=== PATIENT | female | born 1955 | race Caucasian/White ===

== ENCOUNTER 2020-07-25 08:41 | Outpatient (CLI) | payer BC, SELFPAY ==
--- NOTE | ~2020-07-25 | MM_ITS ---
EXAMINATION: MM screening silvia BI w kenneth HISTORY: Screening TECHNIQUE: Craniocaudal and mediolateral oblique 3-D tomosynthesis images were obtained and synthetic 2-D images were generated. CAD analysis was submitted and interpreted. COMPARISON: Comparison to multiple prior studies sequentially, with oldest reviewed study dated 06/11. BREAST PARENCHYMAL COMPOSITION: There are scattered areas of fibroglandular density. FINDINGS: There is no evidence of suspicious mass, calcification, or architectural distortion to sugg est malignancy in either breast. There has been no suspicious interval change. IMPRESSION: 1. No mammographic evidence of malignancy. 2. Recommend routine screening mammography in one year. BI-RADS Category 1: Negative Reviewed, dictated and finalized at location A.
== END 2020-07-25 08:42 | disposition home or self-care (01) ==
LOC: ANHIMG 08:47
PROVIDERS: PCP Internal Medicine; Visit Provider Obstetrics & Gynecology
DX: Z12.31 Encounter for screening mammogram for malignant neoplasm of breast (principal)
CPT/HCPCS: 77063; 77067

== ENCOUNTER 2020-08-21 02:01 | Day surgery (SDC) | payer BC, SELFPAY ==
[2020-08-07 10:37] VITALS: BMI 29.9
[2020-08-21 11:21] VITALS: BP 123/87; PULSE 81; RESP 17; TEMP 36.5; O2SAT 99; BMI 29.0
[2020-08-21] MEDS: LACTATED RINGERS 1,000 ML 150 ML IV CONT (11:25)
--- NOTE | 2020-08-21 12:19 | WPDANESEPPF ---
Anes - Initial Pre Proc Eval Procedure: Operation Date: 08/21/20 12:30 Proposed Procedures p Colonoscopy - Rodri Jimenez DO Date/Time: 08/21/20 12:19 Surgeon: Rodri Jimenez DO Pre Op Diagnosis: constipation Patient Data Age: 64 Gender: F Height: 1.68 m Weight: 81.8 kg Last Vital Signs Temp 97.7 F 08/21/20 11:21 Pulse 81 08/21/20 11:21 Resp 17 08/21/20 11:21 BP 123/87 08/21/20 11:21 Pulse Ox 99 08/21/20 11:21 Allergies Allergy/AdvReac Type Severity Reaction Status Date / Time morphine Allergy Severe Vomiting Verified 08/21/20 11:20 Penicillins Allergy Mild Hives Verified 08/21/20 11:20 Home Medications Medication Instructions Recorded Confirmed Type omeprazole 20 mg capsule,delayed 20 mg PO BID #180 cap 02/16/19 08/21/20 Rx release ascorbate calcium (vitamin C) 500 500 mg PO DAILY 03/28/19 08/21/20 History mg tablet aspirin 81 mg tablet,delayed 81 mg PO DAILY 03/28/19 08/21/20 History release atorvastatin 80 mg tablet 80 mg PO DAILY 03/28/19 08/21/20 History cyclobenzaprine 10 mg tablet 10 mg PO TID PRN 03/28/19 08/21/20 History lisinopril 20 mg tablet 20 mg PO DAILY 03/28/19 08/21/20 History metoprolol succinate 25 mg capsule 25 mg PO DAILY 03/28/19 08/21/20 History sprinkle, ext. release 24 hr ioxvfygbnfer-Kl-zgpr-minerals 1 tablet PO DAILY 03/28/19 08/21/20 History cholecalciferol (vitamin D3) 25 25 mcg PO DAILY 09/26/19 08/21/20 History mcg (1,000 unit) capsule mupirocin 2 % topical ointment 1 applic TOPICAL BID #15 gm 09/26/19 08/21/20 Rx omega-3 fatty acids 1,000 mg 1,000 mg PO DAILY 09/26/19 08/21/20 History capsule tramadol 50 mg tablet 50 mg PO BID PRN #60 tablet 07/09/20 08/21/20 Rx levothyroxine 112 mcg tablet 112 mcg PO DAILY #90 tablet 08/02/20 08/21/20 Rx gabapentin 300 mg PO PRN PRN 08/07/20 08/21/20 History trazodone 100 mg PO DAILY 08/07/20 08/21/20 History Patient hx anesthesia problems: none Family hx anesthesia problems: none PMFSH Past Medical History Medical History (Updated 08/21/20 @ 12:19 by James Rios MD) CAD (coronary artery disease) stents in place Gastroesophageal reflux disease Hyperlipidemia Hypertension Hypothyroidism Family History Family History Father Family history of cardiovascular disease Mother Family history of cardiovascular disease Sibling Family history of cardiovascular disease Family history of malignant neoplasm Other Cerebrovascular accident Diabetes mellitus Family history of alcoholism Family history of arthritis Family history of gout Hypertension Social History Social History Smoking status: Former smoker Tobacco type: cigarettes Second hand tobacco smoke exposure: No Smoking end date: 02/22/06 Alcohol intake: current Drinks per week: 5 Alcohol use details: socially Substance use: current Substance use type: marijuana Other substance usage details: CBD oil Living arrangements: alone Spiritual care concerns: No Anes - Eval Final PreProcedure Day of Procedure 08/21/20 12:19 Patient weight: obese Heart: regular rate and rhythm Lungs: clear to auscultation Airway: Mallampati scale class II Neurological: alert and oriented Last oral intake: >/= 8 hours ASA classification: III Emergent: no Anesthetic plan: proceed Anesthesia type and monitoring: general GIVS and standard monitoring Informed Consent: The patient's anesthetic plan and its attendant risks and benefits were discussed with the patient/family/POA. Questions were solicited and answers provided to the satisfaction of the patient/family/POA.
--- NOTE | 2020-08-21 13:23 | WPDGICN ---
GI Consult Note Consult date/time: 08/21/20 13:23 HPI: Reason for visit colonoscopy. This very pleasant lady seen in consultation request the primary physician. Impression: Screening colonoscopy. GERD with dysphagia. Evaluate for underlying ring or stricture. HTN. HLD. Hypothyroidism. CAD. Status post stent placement. Recommendation: Colonoscopy. EGD will be scheduled. History: This very pleasant lady's here for colonoscopy. She has been having trouble with constipation. She takes stool softeners and laxatives to have a bowel movement. She has remote history of diverticulosis coli and a hyperplastic polyp. Hematochezia, melena acholic stools tonight. She has a history reflux disease and is now having dysphagia to solid foods. Physical examination: General: very pleasant patient in no acute distress. HEENT: Head was normocephalic sclerae is clear mouth without masses neck was supple. Heart: Rate rhythm regular without S3 or S4. Lungs: Decreased breath sounds bilaterally. Abdomen: Soft with no guarding or rigidity. Bowel sounds were active. Neurologic: Cranial nerves 2 through 12 intact. No focal defects. No clonus. Musculoskeletal system: Revealed no joint tenderness or swelling no muscle atrophy. Extremities: Reveal no significant edema. Skin: Warm and dry with normal turgor. Mental status: intact. Patient is alert and oriented. Review of Systems Review of Systems: All systems reviewed & are unremarkable except as noted in HPI and below PMFSH Past Medical History Medical History (Updated 08/21/20 @ 12:19 by James Rios MD) CAD (coronary artery disease) stents in place Gastroesophageal reflux disease Hyperlipidemia Hypertension Hypothyroidism Family History Family History Father Family history of cardiovascular disease Mother Family history of cardiovascular disease Sibling Family history of cardiovascular disease Family history of malignant neoplasm Other Cerebrovascular accident Diabetes mellitus Family history of alcoholism Family history of arthritis Family history of gout Hypertension Social History Social History Smoking status: Former smoker Tobacco type: cigarettes Second hand tobacco smoke exposure: No Smoking end date: 02/22/06 Alcohol intake: current Drinks per week: 5 Alcohol use details: socially Substance use: current Substance use type: marijuana Other substance usage details: CBD oil Living arrangements: alone Spiritual care concerns: No Meds Home Medications and Allergies Home Medications Medication Instructions Recorded Confirmed Type omeprazole 20 mg capsule,delayed 20 mg PO BID #180 cap 02/16/19 08/21/20 Rx release ascorbate calcium (vitamin C) 500 500 mg PO DAILY 03/28/19 08/21/20 History mg tablet aspirin 81 mg tablet,delayed 81 mg PO DAILY 03/28/19 08/21/20 History release atorvastatin 80 mg tablet 80 mg PO DAILY 03/28/19 08/21/20 History cyclobenzaprine 10 mg tablet 10 mg PO TID PRN 03/28/19 08/21/20 History lisinopril 20 mg tablet 20 mg PO DAILY 03/28/19 08/21/20 History metoprolol succinate 25 mg capsule 25 mg PO DAILY 03/28/19 08/21/20 History sprinkle, ext. release 24 hr ihczhxaygtjm-Uz-xugr-minerals 1 tablet PO DAILY 03/28/19 08/21/20 History cholecalciferol (vitamin D3) 25 25 mcg PO DAILY 09/26/19 08/21/20 History mcg (1,000 unit) capsule mupirocin 2 % topical ointment 1 applic TOPICAL BID #15 gm 09/26/19 08/21/20 Rx omega-3 fatty acids 1,000 mg 1,000 mg PO DAILY 09/26/19 08/21/20 History capsule tramadol 50 mg tablet 50 mg PO BID PRN #60 tablet 07/09/20 08/21/20 Rx levothyroxine 112 mcg tablet 112 mcg PO DAILY #90 tablet 08/02/20 08/21/20 Rx gabapentin 300 mg PO PRN PRN 08/07/20 08/21/20 History trazodone 100 mg PO DAILY 08/07/20
[2020-08-21 13:50] VITALS: BP 94/61; PULSE 69; RESP 25; O2SAT 100
[2020-08-21 14:00] VITALS: BP 107/79; PULSE 65; RESP 22; O2SAT 99
[2020-08-21 14:10] VITALS: BP 107/79; PULSE 66; RESP 21; O2SAT 100
== END 2020-08-21 14:25 | disposition home or self-care (01) ==
PROVIDERS: PCP Internal Medicine; Visit Provider Internal Medicine Gastroenterology
PROC: 0DJD8ZZ Inspection of Lower Intestinal Tract, Via Natural or Artificial Opening Endoscopic (ICD-10-PCS; CPT 45378; principal; 2020-08-21 12:30)
DX: Z12.11 Encounter for screening for malignant neoplasm of colon (principal); K57.30 Diverticulosis of large intestine without perforation or abscess without bleeding; K64.8 Other hemorrhoids; K59.00 Constipation, unspecified; K21.9 Gastro-esophageal reflux disease without esophagitis; I10 Essential (primary) hypertension; E78.5 Hyperlipidemia, unspecified; I25.10 Atherosclerotic heart disease of native coronary artery without angina pectoris; E03.9 Hypothyroidism, unspecified; Z95.5 Presence of coronary angioplasty implant and graft; Z87.891 Personal history of nicotine dependence; F12.90 Cannabis use, unspecified, uncomplicated; Z79.82 Long term (current) use of aspirin; E66.9 Obesity, unspecified; Z68.29 Body mass index [BMI] 29.0-29.9, adult
CPT/HCPCS: 45378; J2704; J7120

== ENCOUNTER 2021-11-25 17:27 | Emergency (ER) | payer OTHER, SELFPAY ==
--- NOTE | ~2021-11-25 | XR_ITS ---
EXAM: XR wrist LT min 3V DATE: 11/25/2021 19:09 HISTORY: FALL TODAY, SWELLING TO DISTAL ULNA . COMPARISON: None available. FINDINGS: Decreased mineralization. Comminuted, intra-articular distal left radial fracture, with mi ld impaction and 15 degrees posterior angulation. No lytic or blastic lesion. Joint spaces are mainta ined. No erosion or periosteal change. Soft tissues within normal limits. IMPRESSION: Comminuted, intra-articular distal left radial fracture with mild impaction and 15 degree s posterior angulation. Reviewed, dictated and finalized at location K. IMPRESSION: Comminuted, intra-articular distal left radial fracture with mild i mpaction and 15 degrees posterior angulation.
--- NOTE | ~2021-11-25 | XR_ITS ---
EXAM: XR lumbar spine 2-3V DATE: 11/25/2021 19:10 HISTORY: FALL TODAY, PAIN TO L5-SACRAL REGION . COMPARISON: 11/25/2021. FINDINGS: Multilevel severe degenerative disc disease. Multilevel severe facet arthropathy, with int erspinous narrowing. Aortic calcification without evident aneurysm. Multiple soft tissue anchors proj ect over the lower abdomen. Focal cortical irregularity along the anterior surface of S5. IMPRESSION: No acute fracture or traumatic malalignment in the lumbar spine. Possible nondisplaced fr acture of S5. Correlate with point tenderness or pain with mobilization of the coccyx. JACOB can be mor e sensitive than radiographs for distal sacral and coccygeal injury. Reviewed, dictated and finalized at location K. IMPRESSION: No acute fracture or traumatic malalignment in the lumbar spine. Po ssible nondisplaced fracture of S5. Correlate with point tenderness or pain wit h mobilization of the coccyx. JACOB can be more sensitive than radiographs for di stal sacral and coccygeal injury.
--- NOTE | ~2021-11-25 | XR_ITS ---
EXAM: XR wrist LT 2V DATE: 11/25/2021 22:48 HISTORY: post-reduction . COMPARISON: None available. FINDINGS/IMPRESSION: Osseous detail obscured by cast material. Slightly improved posterior angulation of the comminuted distal left radial fracture. Reviewed, dictated and finalized at location K.
--- NOTE | ~2021-11-25 | XR_ITS ---
EXAM: XR sacrum coccyx min 2V DATE: 11/25/2021 21:53 HISTORY: sacral pain . COMPARISON: None available. FINDINGS: Exam limited by osteopenia, overlying soft tissue anchors and bowel gas which completely o bscure the sacrum in the frontal view. The anterior cortex of the lower sacrum still appears irregula r at this area is less well seen in this examination due to technical factors. IMPRESSION: Limited examination. Distal sacrum poorly visualized. Reviewed, dictated and finalized at location K.
[2021-11-25 18:30] VITALS: BP 172/100; PULSE 78; RESP 16; TEMP 36.5; O2SAT 99
[2021-11-25] MEDS: HYDROcodone/acetaminophen (*CRX) 5-325 MG TABLET 1 TAB PO (21:41)
--- NOTE | 2021-11-25 21:46 | ED.UPPEXIN ---
HPI - Extremity Injury (Upper) General Chief Complaint: Extremity Injury, Upper <Amanda Spear PA-C - Last Filed: 11/25/21 23:22> Stated Complaint: Left Wrist Pain <Amanda Spear PA-C - Last Filed: 11/25/21 23:22> Time Seen by Provider: 11/25/21 21:16 <Amanda Spear PA-C - Last Filed: 11/25/21 23:22> Source: patient <MARIJA Zhang Last Filed: 11/25/21 23:22> Mode of arrival: ambulatory <MARIJA Zhang Last Filed: 11/25/21 23:22> Limitations: no limitations <MARIJA Zhang Last Filed: 11/25/21 23:22> History of Present Illness HPI narrative: This is a 65-year-old female that presents to the emergency department after a ground-level fall today with left wrist injury. Reports she tripped over her nieces dog. She caught herself with her left wrist. She does not think that she hit her head. She did not lose consciousness. She also is reporting some sacral pain. Denies numbness. <Amanda Spear PA-C - Last Filed: 11/25/21 23:22> Related Data Home Medications: Home Medications Medication Instructions Recorded Confirmed ascorbate calcium (vitamin C) 500 500 mg PO DAILY 03/28/19 09/24/21 mg tablet aspirin 81 mg tablet,delayed 81 mg PO DAILY 03/28/19 09/24/21 release (Adult Low Dose Aspirin) atorvastatin 80 mg tablet 80 mg PO DAILY 03/28/19 09/24/21 cyclobenzaprine 10 mg tablet 10 mg PO TID PRN Muscle Spasm 03/28/19 09/24/21 metoprolol succinate 25 mg capsule 25 mg PO DAILY 03/28/19 09/24/21 sprinkle, ext. release 24 hr osyjhuucovhr-Bh-uchq-minerals 1 tablet PO DAILY 03/28/19 09/24/21 (Multiple Vitamin, Womens tablet) cholecalciferol (vitamin D3) 25 25 mcg PO DAILY 09/26/19 09/24/21 mcg (1,000 unit) capsule omega-3 fatty acids 1,000 mg 1,000 mg PO DAILY 09/26/19 09/24/21 capsule (Fish Oil Concentrate) <Amanda Spear PA-C - Last Filed: 11/25/21 23:22> Allergies/Adverse Reactions: Allergies Allergy/AdvReac Type Severity Reaction Status Date / Time morphine Allergy Severe Vomiting Verified 11/25/21 21:14 Penicillins Allergy Mild Hives Verified 11/25/21 21:14 <Amanda Spear PA-C - Last Filed: 11/25/21 23:22> Review of Systems Review of Systems: CONSTITUTIONAL: Denies fever EYES: Denies visual changes GASTROINTESTINAL: Denies vomiting MUSCULOSKELETAL: Reports back pain, joint pain, and myalgia. NEUROLOGIC: Denies numbness, or weakness. <Amanda Spear PA-C - Last Filed: 11/25/21 23:22> All systems reviewed & are unremarkable except as noted in HPI and below <Amanda Spear PA-C - Last Filed: 11/25/21 23:22> [facility] Past Medical History Medical History: Medical History CAD (coronary artery disease) stents in place Gastroesophageal reflux disease Hyperlipidemia Hypertension Hypothyroidism <Amanda Spear PA-C - Last Filed: 11/25/21 23:22> Family History Family History: Family History Father Family history of cardiovascular disease Mother Family history of cardiovascular disease Sibling Family history of cardiovascular disease Family history of malignant neoplasm Other Cerebrovascular accident Diabetes mellitus Family history of alcoholism Family history of arthritis Family history of gout Hypertension <Amanda Spear PA-C - Last Filed: 11/25/21 23:22> Social History Social History: Social History Smoking status: Former smoker Tobacco type: cigarettes Second hand tobacco smoke exposure: No Smoking end date: 02/22/06 Alcohol intake: current Drinks per week: 5 Alcohol use details: socially Substance use: current Substance use type: marijuana Other substance usage details: CBD oil Spiritual care concerns: No <Amanda Spear PA-C - Last Filed: 11/25/21 23:22> Exa
[2021-11-25] MEDS: LIDOCAINE HCL 1% PF 30 ML VIAL 20 ML INFILTRATE (21:51)
--- NOTE | 2021-11-25 23:53 | PC.NURSE ---
Desk sec gave pt radiology disc to pt and pt left hospital.
== END 2021-11-25 23:40 | disposition home or self-care (01) ==
PROVIDERS: Emergency Provider Emergency Medicine; PCP Internal Medicine
DX: S52.572A Other intraarticular fracture of lower end of left radius, initial encounter for closed fracture (principal); S32.10XA Unspecified fracture of sacrum, initial encounter for closed fracture; W01.0XXA Fall on same level from slipping, tripping and stumbling without subsequent striking against object, initial encounter
CPT/HCPCS: 25605; 72100; 72220; 73100; 73110; 99285; A4565; A9270

== ENCOUNTER 2022-01-07 11:04 | Emergency (ER) | payer OTHER, SELFPAY ==
--- NOTE | ~2022-01-07 | CT_ITS ---
EXAMINATION: CT cervical spine wo con DATE: 01/07/2022 14:17 INDICATION: Fall with head injury TECHNIQUE: Computed tomography (CT) of the cervical spine was performed without intravenous contrast. Automated exposure control and iterative reconstruction technique were employed. The dose-length pro duct was 393.72 mGy-cm. COMPARISON: None FINDINGS: Mild cervical dextrocurvature. 1 mm anterolisthesis C4 on C5 and 1 mm retrolisthesis C6 on C7. Chroni c mild anterior wedging at T1 with no evident acute fractures. Cervical vertebral body heights are no rmal. Severe disc height loss at C6-C7, moderate disc height loss at C5-C6 and mild disc height loss at C4-C5 and posteriorly at C2-C3. Severe uncovertebral osteoarthritis bilaterally at C6-C7 and on th e left at C5-C6. Additional mild to moderate uncovertebral osteoarthritis at a few additional cervica l levels. Multilevel bilateral severe cervical facet osteoarthritis. There is solid osseous fusion ac ross the C3-C5. This results in mild to moderate neural foraminal stenosis on the left from C2-C3 thr ough C6-C7 and mild neural foraminal stenosis at many of the remaining bilateral cervical neural fora sam. No significant central canal stenosis. Cervical soft tissues are unremarkable. Visualized airwa y and apices of lungs are clear. IMPRESSION: 1. Moderate to severe cervical spondylosis. No acute osseous abnormality. Reviewed, dictated and finalized at location B. TRAINING SPECIALIST
--- NOTE | ~2022-01-07 | XR_ITS ---
XR sacrum coccyx min 2V DATE: 01/07/2022 14:29 INDICATION: Fall. Coccyx pain. TECHNIQUE: AP, angled AP and lateral views of sacrum and coccyx COMPARISON: None FINDINGS: Prominent multilevel degenerative disc disease of the lumbar and lumbosacral spine. There i s degenerative change at the sacroiliac joints but no erosive change or ankylosis. No sacral or coccygeal fracture or bone destruction is detected. IMPRESSION: No sacral or coccygeal fracture is detected Reviewed, dictated and finalized at location A. ARE PROJECT MANAGER
--- NOTE | ~2022-01-07 | XR_ITS ---
XR ribs RT 2V w CXR 2V DATE: 01/07/2022 14:29 INDICATION: Fall. Right posterior rib pain. TECHNIQUE: PA and lateral chest. 3 views of the right ribs. COMPARISON: June 01, 2018 2 view chest FINDINGS: Normal heart size. Aortic calcification, ectasia and unfolding. No hilar or mediastinal enl argement. No pulmonary infiltrate or consolidation, pleural effusion or pulmonary vascular congestion or pneumothorax. Diffuse osteopenia. No right rib fracture is evident. There is dextroscoliosis and degenerative spurring of the thoracic spine. IMPRESSION: No active cardiac pulmonary disease No detected right rib fracture Reviewed, dictated and finalized at location A. ICAL OPERATIONS LEADER
--- NOTE | ~2022-01-07 | CT_ITS ---
EXAMINATION: CT brain wo con INDICATION: Head injury COMPARISON: None TECHNIQUE: Standard unenhanced head CT. The dose-length product (DLP) was 605.33 mGy-cm. The mA was a djusted according to patient size. Iterative reconstruction technique was employed. FINDINGS: There is no intracranial hemorrhage, acute infarction, or abnormal mass lesion. The ventric les are normal. There is no abnormal mass effect or midline shift. The chester-white matter differentiat ion is normal. The basal cisterns are patent. The orbits are normal. There is mild mucosal thickening of the paranasal sinuses. IMPRESSION: 1. No acute intracranial abnormality. Reviewed, dictated and finalized at location F. ING DOCK HELPER
[2022-01-07 11:26] VITALS: BP 150/81; PULSE 75; RESP 17; TEMP 36.9; O2SAT 96
--- NOTE | 2022-01-07 14:27 | PC.NURSE ---
Patient off unit to CT.
--- NOTE | 2022-01-07 14:35 | ED.GENADULT ---
HPI - General Adult General Chief complaint: Wound/Laceration Stated complaint: fall, head lac Time Seen by Provider: 01/07/22 13:12 Source: patient Mode of arrival: ambulatory Limitations: no limitations History of Present Illness HPI narrative: Patient is a 66-year-old female who presents the ED with report of a head injury. Patient reports she was at work today and missed a step coming down off a ladder, falling backwards, hitting her head on the ground. She sustained a small laceration to her posterior scalp. Bleeding controlled by the time of my evaluation. Patient takes an aspirin 81 mg daily. No other blood thinners. She did not lose consciousness. No prodromal symptoms. She complains of pain to her right mid back/right posterior ribs, and tailbone. She does note she fractured her tailbone a few weeks ago. She has not taken anything for pain prior to arrival. Denies any dizziness, lightheadedness, nausea, vision changes, headache currently. Related Data Home Medications Medication Instructions Recorded Confirmed aspirin 81 mg tablet,delayed 81 mg PO DAILY 03/28/19 12/30/21 release (Adult Low Dose Aspirin) atorvastatin 80 mg tablet 80 mg PO DAILY 03/28/19 12/30/21 metoprolol succinate 25 mg capsule 25 mg PO DAILY 03/28/19 12/30/21 sprinkle, ext. release 24 hr qutxhmqlzmii-Tp-limt-minerals 1 tablet PO DAILY 03/28/19 12/30/21 (Multiple Vitamin, Womens tablet) omega-3 fatty acids 1,000 mg 1,000 mg PO DAILY 09/26/19 12/30/21 capsule (Fish Oil Concentrate) oxybutynin chloride 10 mg 10 mg PO DAILY 12/01/21 12/30/21 tablet,extended release 24 hr vitamins A,C,V-filw-uehozh 14,320 1 cap PO BID 12/01/21 12/30/21 unit-226 mg-200 unit capsule (PreserVision AREDS) cholecalciferol (vitamin D3) 25 50 unit PO DAILY 12/04/21 12/30/21 mcg (1,000 unit) capsule levothyroxine 125 mcg tablet 125 mcg PO DAILY 12/04/21 12/30/21 Allergies Allergy/AdvReac Type Severity Reaction Status Date / Time morphine Allergy Severe Vomiting Verified 01/07/22 11:20 Penicillins Allergy Mild Hives Verified 01/07/22 11:20 Review of Systems Review of Systems: CONSTITUTIONAL: Denies fever, chills, or sweats. EYES: Denies visual changes. CARDIOVASCULAR: Denies chest pain. RESPIRATORY: Denies dyspnea. GASTROINTESTINAL: Denies abdominal pain, nausea, vomiting, or diarrhea. SKIN: Reports laceration to posterior scalp. MUSCULOSKELETAL: Reports pain to right mid back/right posterior ribs, tailbone. Denies neck pain. NEUROLOGIC: Reports head injury. Denies LOC, headache, numbness, or weakness. All systems reviewed & are unremarkable except as noted in HPI and below PMFSH Past Medical History Medical History CAD (coronary artery disease) stents in place Gastroesophageal reflux disease Hyperlipidemia Hypertension Hypothyroidism Surgical History Surgical History History of (3) 1979, 1984, 1986 History of carpal tunnel surgery Bilateral in [address] Morrow History of hernia repair 06/25/2003, 07/27/[address] Vega History of hysterectomy 08/12/[address] Alvarado [place] History of surgery on wrist (2) RT repair 03/31/12, 05/13/2014 History of tonsillectomy Hx of colonoscopy 09/21/2002, 04/23/2014, 08/21/2020 S/P angioplasty with stent 07/04/1999 S/P left rotator cuff repair 07/27/2016 [place] S/P right rotator cuff repair 07/03/[address] Morrow Family History Family History Father Family history of cardiovascular disease Mother Family history of cardiovascular disease Sibling Family history of cardiovascular disease Family history of malignant neoplasm Other Cerebrovascular accident Diabetes mellitus Family history of alcoholism Family history of arthritis Family history of gout Hyperlipidemia Hypertension Neur
== END 2022-01-07 15:50 | disposition home or self-care (01) ==
PROVIDERS: Emergency Provider Emergency Medicine; PCP Internal Medicine
DX: S01.01XA Laceration without foreign body of scalp, initial encounter (principal); S30.0XXA Contusion of lower back and pelvis, initial encounter; W11.XXXA Fall on and from ladder, initial encounter; I25.10 Atherosclerotic heart disease of native coronary artery without angina pectoris; K21.9 Gastro-esophageal reflux disease without esophagitis; E78.5 Hyperlipidemia, unspecified; I10 Essential (primary) hypertension; E03.9 Hypothyroidism, unspecified
CPT/HCPCS: 12001; 70450; 71046; 71100; 72125; 72220; 99284

== ENCOUNTER 2022-01-11 13:13 | Emergency (ER) | payer OTHER, SELFPAY ==
--- NOTE | 2022-01-11 13:49 | ED.FEMALEGU ---
HPI - Female Genitourinary General Chief complaint: Urogenital-Female Stated complaint: blood in urine, pain in neck Time Seen by Provider: 01/11/22 13:43 Source: patient Mode of arrival: ambulatory Limitations: no limitations History of Present Illness HPI Narrative: Patient presents today with a 2 day history of urinary frequency, dysuria, hematuria. Denies any abdominal pain, back pain, fever. She has tried dfrf-xxg-ttjmjfo treatment prior to arrival. Related Data Home Medications Medication Instructions Recorded Confirmed aspirin 81 mg tablet,delayed 81 mg PO DAILY 03/28/19 01/11/22 release (Adult Low Dose Aspirin) atorvastatin 80 mg tablet 80 mg PO DAILY 03/28/19 01/11/22 metoprolol succinate 25 mg capsule 25 mg PO DAILY 03/28/19 01/11/22 sprinkle, ext. release 24 hr bjlmarwovblv-Mt-ddjt-minerals 1 tablet PO DAILY 03/28/19 01/11/22 (Multiple Vitamin, Womens tablet) omega-3 fatty acids 1,000 mg 1,000 mg PO DAILY 09/26/19 01/11/22 capsule (Fish Oil Concentrate) oxybutynin chloride 10 mg 10 mg PO DAILY 12/01/21 01/11/22 tablet,extended release 24 hr vitamins A,C,G-mcuq-mknxis 14,320 1 cap PO BID 12/01/21 01/11/22 unit-226 mg-200 unit capsule (PreserVision AREDS) cholecalciferol (vitamin D3) 25 50 unit PO DAILY 12/04/21 01/11/22 mcg (1,000 unit) capsule levothyroxine 125 mcg tablet 125 mcg PO DAILY 12/04/21 01/11/22 Allergies Allergy/AdvReac Type Severity Reaction Status Date / Time morphine Allergy Severe Vomiting Verified 01/11/22 13:32 Penicillins Allergy Mild Hives Verified 01/11/22 13:32 Review of Systems Review of Systems: CONSTITUTIONAL: Denies body aches, fever, chills, or sweats. EYES: Denies visual changes, redness, or discharge. ENT: Denies rhinorrhea, congestion, sore throat, or otalgia. CARDIOVASCULAR: Denies chest pain, palpitations, or edema. RESPIRATORY: Denies cough or dyspnea. GASTROINTESTINAL: Denies abdominal pain, nausea, vomiting, or diarrhea. GENITOURINARY: + Dysuria, hematuria, frequency SKIN: Denies rash, itching, or wounds. MUSCULOSKELETAL: Denies back pain, joint pain, or myalgia. NEUROLOGIC: Denies headache, numbness, tingling, or weakness. PSYCH: Denies depression or anxiety. [facility] Past Medical History Medical History CAD (coronary artery disease) stents in place Gastroesophageal reflux disease Hyperlipidemia Hypertension Hypothyroidism Surgical History Surgical History History of (3) 1979, 1984, 1986 History of carpal tunnel surgery Bilateral in [address] Morrow History of hernia repair 06/25/2003, 07/27/[address] Vega History of hysterectomy 08/12/[address] Alvarado Olmstead History of surgery on wrist (2) RT repair 03/31/12, 05/13/2014 History of tonsillectomy Hx of colonoscopy 09/21/2002, 04/23/2014, 08/21/2020 S/P angioplasty with stent 07/04/1999 S/P left rotator cuff repair 07/27/2016 [place] S/P right rotator cuff repair 07/03/[address] Morrow Family History Family History Father Family history of cardiovascular disease Mother Family history of cardiovascular disease Sibling Family history of cardiovascular disease Family history of malignant neoplasm Other Cerebrovascular accident Diabetes mellitus Family history of alcoholism Family history of arthritis Family history of gout Hyperlipidemia Hypertension Neuropathy Social History Social History Smoking packs per day: 2 Smoking cigarettes per day: 40.0 Smoking status: Former smoker Tobacco type: cigarettes Second hand tobacco smoke exposure: No Alcohol intake: current Alcohol use details: seldom Substance use: current Substance use type: marijuana Other substance usage details: Gu
[2022-01-11 13:52] VITALS: BP 141/88; PULSE 95; RESP 16; TEMP 37.2; O2SAT 100
== END 2022-01-11 13:58 | disposition home or self-care (01) ==
PROVIDERS: Emergency Provider Nurse Practitioner; PCP Internal Medicine
DX: N30.01 Acute cystitis with hematuria (principal); Z79.82 Long term (current) use of aspirin; I25.10 Atherosclerotic heart disease of native coronary artery without angina pectoris; K21.9 Gastro-esophageal reflux disease without esophagitis; E78.5 Hyperlipidemia, unspecified; I10 Essential (primary) hypertension; E03.9 Hypothyroidism, unspecified; Z87.891 Personal history of nicotine dependence
CPT/HCPCS: 81003; 87077; 87086; 87186; 99213; G0463

== ENCOUNTER 2022-02-02 12:34 | Outpatient (CLI) | payer OTHER, SELFPAY ==
[2022-02-02 13:41] LABS: Influenza A QL RT-PCR Negative (Negative); Influenza B QL RT-PCR Negative (Negative)
== END 2022-02-02 12:35 | disposition home or self-care (01) ==
LOC: ANHLAB 12:37
PROVIDERS: PCP Internal Medicine; Visit Provider Internal Medicine
DX: B34.9 Viral infection, unspecified (principal)
CPT/HCPCS: 87502

== ENCOUNTER 2022-04-08 11:56 | Outpatient (CLI) | payer OTHER, SELFPAY ==
--- NOTE | 2022-04-08 12:11 | ECG_ITS ---
Measurements Intervals [place] Rate: 71 P: 37 CO: 157 QRS: 33 QRSD: 88 T: 43 QT: 375 QTc: 409 Interpretive Statements SINUS RHYTHM NO PREVIOUS ECG AVAILABLE FOR COMPARISON Electronically Signed On 04-08-2022 15:32:36 ACADEMIC SUPPORT DIRECTOR by Pierre Ellis M.D.
[2022-04-08 12:18] LABS: Appearance Urine Clear (Clear); Bilirubin Urine Negative (Negative); Blood Urine 2+ (Negative); Color Urine Yellow (Yellow); Glucose Urine UA Negative (Negative); Ketones Urine Negative (Negative); Leukocyte Esterase Ur Negative LEU/UL (Negative); Nitrate Urine Negative (Negative); Protein Urine Negative (Negative); Urobilinogen Urine 0.2 mg/dL (<2.0)
[2022-04-08 12:32] LABS: Bacteria Urine Trace /hpf; Mucus Urine Rare /lpf; Squamous Epithelial Cell Urine Moderate /hpf (Few); WBC Urine 0-3 /hpf
[2022-04-08 12:34] LABS: Add Urine Microscopic? YES
== END 2022-04-08 11:57 | disposition home or self-care (01) ==
PROVIDERS: PCP Internal Medicine; Visit Provider Nurse Practitioner Family
DX: M17.12 Unilateral primary osteoarthritis, left knee (principal); I10 Essential (primary) hypertension
CPT/HCPCS: 81001; 93005

== ENCOUNTER → 2022-04-15 09:48 | Outpatient (CLI) | payer OTHER, SELFPAY ==
--- NOTE | ~2022-04-15 | MR_ITS ---
EXAMINATION: MR lumbar spine wo con DATE: 04/15/2022 10:18 INDICATION: Lumbar radicular pain TECHNIQUE: Magnetic resonance imaging (MRI) of the lumbar spine was performed without intravenous con trast. Sequences included sagittal T2-weighted FSE, sagittal T2-weighted FS FSE, sagittal T1-weighted FSE, and axial T2-weighted FSE. COMPARISON: Lumbar spine radiographs dated 04/05/2018 FINDINGS: A degree lumbar levocurvature. One-2 mm retrolisthesis L1 on L2, L2 on L3 and L3 on L4.. Mild anterio r wedging at T11 and T12. Lumbar vertebral body heights are normal. Multilevel disc height loss, ruben re at L1-L2, moderate to severe with right-sided predominance at L3-L4 and L4-5. Moderate disc height loss at T10-T11 through T12-L1 and at L5-S1. Annular fissures at L2-L3 through L5-S1. There are asso ciated fibrovascular degenerative endplate changes at multiple levels in the lumbar and lower thoraci c spine. Marrow signal is otherwise unremarkable. The conus medullaris terminates at L2. There is nor mal signal in the caudal spinal cord. Paravertebral soft tissues are unremarkable. The following disc levels are specifically discussed: T12-L1: Disc is bulging. There is mild bilateral facet joint osteoarthritis. There is no neural david inal stenosis. There is mild central canal stenosis. L1-L2: Disc is bulging. There is mild bilateral facet joint osteoarthritis. There is mild bilateral n eural foraminal stenosis. There is mild central canal stenosis. L2-L3: Disc is bulging. There is mild to moderate bilateral facet joint osteoarthritis. There is mode rate bilateral neural foraminal stenosis. There is mild central canal stenosis. L3-L4: Disc is bulging. There is mild left and moderate right facet joint osteoarthritis. There is mi ld right and mild to moderate left neural foraminal stenosis. There is mild central canal stenosis. L4-L5: Disc is bulging. There is moderate bilateral facet joint osteoarthritis. There is moderate nini ateral neural foraminal stenosis. There is mild central canal stenosis. L5-S1: Disc is bulging with superimposed fluid-filled disc extrusion extending 7 x 4 mm craniocaudall y 6 x 4 mm transaxial dimensions. There is moderate right and severe left facet joint osteoarthritis. There is mild right and moderate to severe left neural foraminal stenosis. There is minimal central canal stenosis. IMPRESSION: 1. Severe lumbar spondylosis. Reviewed, dictated and finalized at location A. 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
== END ==
PROVIDERS: PCP Internal Medicine; Visit Provider Nurse Practitioner Family
DX: M47.26 Other spondylosis with radiculopathy, lumbar region (principal)
CPT/HCPCS: 72148

== ENCOUNTER 2022-06-27 10:36 | Emergency (ER) | payer OTHER, SELFPAY ==
[2022-06-27 10:49] VITALS: BP 140/89; PULSE 78; RESP 16; TEMP 36.3; O2SAT 99
--- NOTE | 2022-06-27 11:13 | ED.GENADULT ---
HPI - General Adult General Chief complaint: Urogenital-Female Stated complaint: UTI SYMPTOMS Source: patient and RN notes reviewed History of Present Illness HPI narrative: 66-year-old female presents to urgent care with complaints of dysuria x3 days. Patient reports burning with urination, urinary frequency, and urinary urgency. Patient states she has a history of UTIs. Last UTI was last month where she was given Macrobid. patient denies any abdominal pain, flank pain, back pain, fevers chills, vomiting. Some parts of this dictation were generated by voice recognition software and may contain typographical and/or grammatical inaccuracies. Related Data Home Medications Medication Instructions Recorded Confirmed aspirin 81 mg tablet,delayed 81 mg PO DAILY 03/28/19 06/27/22 release (Adult Low Dose Aspirin) atorvastatin 80 mg tablet 80 mg PO DAILY 03/28/19 06/27/22 metoprolol succinate 25 mg capsule 25 mg PO DAILY 03/28/19 06/27/22 sprinkle, ext. release 24 hr whqmmmssbdbv-Ev-dmvh-minerals 1 tablet PO DAILY 03/28/19 06/27/22 (Multiple Vitamin, Womens tablet) omega-3 fatty acids 1,000 mg 1,000 mg PO DAILY 09/26/19 06/27/22 capsule (Fish Oil Concentrate) oxybutynin chloride 10 mg 10 mg PO DAILY 12/01/21 06/27/22 tablet,extended release 24 hr vitamins A,C,R-aacq-jonqlw 4,296 1 cap PO BID 12/01/21 06/27/22 mcg-226 mg-90 mg capsule (PreserVision AREDS) cholecalciferol (vitamin D3) 25 50 unit PO DAILY 12/04/21 06/27/22 mcg (1,000 unit) capsule estradiol 0.01% (0.1 mg/gram) See Rx Instructions .Route .COMPLEX 01/11/22 06/27/22 vaginal cream Allergies Allergy/AdvReac Type Severity Reaction Status Date / Time morphine Allergy Severe Vomiting Verified 06/27/22 10:47 Penicillins Allergy Mild Hives Verified 06/27/22 10:47 Review of Systems Review of Systems: Pertinent positives and pertinent negatives per HPI. 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 Morrow History of hernia repair 06/25/2003, 07/27/[address] Vega History of hysterectomy 08/12/[address] Alvarado Olmstead History of surgery on wrist (2) RT repair 03/31/12, 05/13/2014 History of tonsillectomy Hx of colonoscopy 09/21/2002, 04/23/2014, 08/21/2020 S/P angioplasty with stent 07/04/1999 S/P left rotator cuff repair 07/27/2016 [place] S/P right rotator cuff repair 07/03/[address] Morrow Family History Family History Father Family history of cardiovascular disease Mother Family history of cardiovascular disease Sibling Family history of cardiovascular disease Family history of malignant neoplasm Other Cerebrovascular accident Diabetes mellitus Family history of alcoholism Family history of arthritis Family history of gout Hyperlipidemia Hypertension Neuropathy Social History Social History (Updated 06/08/22 @ 09:42 by Treasure Sherman [facility]) Smoking packs per day: 2 Smoking cigarettes per day: 40.0 Smoking status: Former smoker Tobacco type: cigarettes Second hand tobacco smoke exposure: No Alcohol intake: current Alcohol use details: seldom Substance use: current Substance use type: marijuana Other substance usage details: Gummies occasionally for pain Lack of Transportation: No Lack of Food: Never True Current Housing: I Have Housing Concerned About Future Housing: No Difficulty Pay
== END 2022-06-27 11:29 | disposition home or self-care (01) ==
PROVIDERS: Emergency Provider Nurse Practitioner Family; PCP Internal Medicine
DX: N39.0 Urinary tract infection, site not specified (principal); I25.10 Atherosclerotic heart disease of native coronary artery without angina pectoris; E78.5 Hyperlipidemia, unspecified; I10 Essential (primary) hypertension; E03.9 Hypothyroidism, unspecified; Z79.82 Long term (current) use of aspirin; Z87.891 Personal history of nicotine dependence
CPT/HCPCS: 81003; 87077; 87086; 87186; 99213; G0463

== ENCOUNTER 2022-07-14 09:57 | Outpatient (CLI) | payer OTHER, SELFPAY ==
[2022-07-14 11:19] LABS: Basophils Absolute Auto 0.1 K/mm3 (0.0-0.1); Eosinophils Absolute Auto 0.4 K/mm3 (0-0.3); Eosinophils Percent Auto 6.2 % (0-4.4); Hematocrit 38.4 % (37.0-47.0); Hemoglobin 12.3 g/dL (12.0-15.0); Immature Granulocyte Absolute 0.01 K/mm3 (0.00-0.031); Immature Granulocyte Percent A 0.2 % (0-0.5); Lymphocytes Absolute Auto 1.13 K/mm3 (0.9-3.2); Lymphocytes Percent Auto 18.8 % (18.3-44.2); Mean Corpuscular Hemoglobin 29.9 pg (26-34); Mean Corpuscular Volume 93.2 fl (80-100); Mean Platelet Volume 9.9 fl (7.4-10.4); Monocytes Absolute Auto 0.9 K/mm3 (0.1-0.6); Monocytes Percent Auto 14.5 % (2.6-8.5); Neutrophils Absolute Auto 3.6 K/mm3 (1.3-6.7); Neutrophils Percent Auto 59.3 % (45.5-73.1); Platelet Count Result 272 k/mm3 (150-375); Red Blood Count 4.12 M/mm3 (4.2-5.4); Red Cell Distribution Width 12.9 % (11.5-14.5)
[2022-07-14 11:28] LABS: Appearance Urine Clear (Clear); Bacteria Urine None Seen /hpf; Bilirubin Urine Negative (Negative); Blood Urine 1+ (Negative); Color Urine Yellow (Yellow); Glucose Urine UA Negative (Negative); Ketones Urine Negative (Negative); Leukocyte Esterase Ur Negative LEU/UL (Negative); Nitrate Urine Negative (Negative); Non Pathogenic Casts 0-2; Protein Urine Negative (Negative); Specific Grav Ur 1.014 (1.001-1.035); Squamous Epithelial Cell Urine Occasional /hpf (Few); Urobilinogen Urine 0.2 mg/dL (<2.0); WBC Urine 0-5 /hpf; pH Urine 6.5 (5.0-9.0)
[2022-07-14 11:29] LABS: Albumin Level 4.2 g/dL (3.5-5.1); Anion Gap 3 mmol/L (8-16); Blood Urea Nitrogen 13 mg/dL (7-17); Calcium 9.4 mg/dL (8.4-10.2); Carbon Dioxide 32 mmol/L (22-30); Chloride 100 mmol/L (98-107); Estimated Glomerular Filt Rate > 60; Glucose 94 mg/dL (65-110); Potassium 4.2 mmol/L (3.4-5.0); Sodium 135 mmol/L (137-145)
[2022-07-14 11:32] LABS: Add Urine Microscopic? YES; Partial Thromboplastin Time 26.1 SECONDS (22.3-36.8); Prothrombin Time 13.1 Seconds (11.1-14.7)
[2022-07-14 11:37] LABS: Hemoglobin A1C 5.2 % (<5.7)
[2022-07-14 11:39] LABS: Urine Cotinine NEGATIVE
== END 2022-07-14 09:58 | disposition home or self-care (01) ==
LOC: ANHSURGERY 10:02
PROVIDERS: PCP Internal Medicine; Visit Provider Orthopaedic Surgery
DX: M17.12 Unilateral primary osteoarthritis, left knee (principal); Z01.818 Encounter for other preprocedural examination
CPT/HCPCS: 80048; 80307; 81001; 82040; 83036; 85025; 85610; 85730; 87081

== ENCOUNTER 2022-08-04 00:37 | Day surgery (SDC) | payer OTHER, SELFPAY ==
--- NOTE | 2022-07-14 09:42 | PC.NURSE ---
PRE-OP INSTRUCTIONS, PLEASE READ CAREFULLY Report to the Outpatient Waiting Room, entrance under the green pavilion located off [facility], at time _0600_ on date _08/04/22_. Planned Procedure Time: _0730_. PACK A SMALL OVERNIGHT BAG AND LEAVE IN THE CAR Time changes happen often and if your time is changed the preop area will call you the afternoon before. - You and your visitor will be asked to self-screen and do not enter if you have any COVID symptoms. - A mask is optional within the hospital at this time. -VISITING HOURS 8AM-8PM Patients may have clear liquids (water, carbonated beverages, clear teas, apple juice) until 3 hours prior to surgery (0430 AM) with a maximum of 20 ounces. - No food from midnight until time of surgery Take the following medications with a SIP of water the morning of surgery: _LEVOTHYROXINE, & GABAPENTIN, FLEXERIL, TRAMADOL IF NEEDED_ DO NOT STOP ANY OF YOUR OTHER PRESCRIPTION MEDICATIONS PRIOR TO SURGERY ?EXCEPT THE FOLLOWING Medications to discontinue _MAY CONTINUE ASPIRIN PER DR. PRADO'S INSTRUCTIONS (PER PATIENT)_ Medications to discontinue per ANESTHESIA _ PRESERVISION 3 DAYS PRIOR TO SURGERY, Date to take last dose 07/31/22_ Please no make-up, nail kyrgyz, hairspray, perfume, deodorant, or body powder the day of surgery. No jewelry (including any body piercings) or valuables the day of surgery, leave them at home. Please take a shower or bath the night before, or the morning of, surgery with an antibacterial soap. Wear comfortable, loose fitting clothing. - Jewelry must be removed prior to entering the operating room. Rings and piercings that are not removed may be cut off. - The hospital will not accept responsibility for valuables. - Please leave all valuables, including medications, at home the day of surgery. If you are going home after surgery, a licensed electric mule driver must drive you home. - NO public transportation without another adult if you receive anesthesia. - We recommend that an adult stay with you for 24 hours following discharge. - We also recommend that you do not drive, make important decision, drink alcoholic beverages, or take any drugs that were not prescribed by your health care provider for at least 24 hours after your discharge time. Follow any additional instructions given to you from your surgeon. If you or anyone in your household have experienced Covid symptoms in the past week, please notify your surgeon or the nurse liaison at the phone number below for possible testing. Instructions given to and asked if any additional questions and then verbalized understanding. Patient advised to call surgeon office or pre surgery nurse liaison [phone] if any additional questions.
[2022-07-14 10:14] VITALS: BP 122/70; PULSE 76; RESP 18; TEMP 36.8; O2SAT 99; BMI 31.6
--- NOTE | 2022-08-03 14:25 | WPDANESEPPF ---
Anes - Initial Pre Proc Eval Procedure: Operation Date: 08/04/22 07:30 Proposed Procedures p Left Total Knee Arthroplasty, Injection Right Middle Finger A-1 Carol - Toni Rodarte MD Date/Time: 08/03/22 14:25 Surgeon: Toni Rodarte MD Pre Op Diagnosis: Left Knee O A, rt middle trigger finger Patient Data Age: 66 Gender: F Height: 1.65 m Weight: 86.3 kg Last Vital Signs Temp 36.8 C 07/14/22 10:14 Pulse 76 07/14/22 10:14 Resp 18 07/14/22 10:14 BP 122/70 07/14/22 10:14 Pulse Ox 99 07/14/22 10:14 O2 Del Method Room Air 07/14/22 10:14 Allergies Allergy/AdvReac Type Severity Reaction Status Date / Time Penicillins Allergy Mild Hives Verified 07/14/22 10:17 morphine AdvReac Severe Vomiting Verified 08/03/22 07:55 Home Medications Medication Instructions Recorded Confirmed Type aspirin 81 mg tablet,delayed 81 mg PO HS 03/28/19 07/14/22 History release (Adult Low Dose Aspirin) atorvastatin 80 mg tablet 80 mg PO DAILY 03/28/19 07/14/22 History metoprolol succinate 25 mg capsule 25 mg PO HS 03/28/19 07/14/22 History sprinkle, ext. release 24 hr omega-3 fatty acids 1,000 mg 1,000 mg PO DAILY 09/26/19 07/14/22 History capsule (Fish Oil Concentrate) oxybutynin chloride 10 mg 10 mg PO DAILY 12/01/21 07/14/22 History tablet,extended release 24 hr vitamins A,C,I-mnef-upksen 4,296 1 cap PO BID 12/01/21 07/14/22 History mcg-226 mg-90 mg capsule (PreserVision AREDS) cholecalciferol (vitamin D3) 25 50 unit PO DAILY 12/04/21 07/14/22 History mcg (1,000 unit) capsule estradiol 0.01% (0.1 mg/gram) See Rx Instructions .Route .COMPLEX 01/11/22 07/14/22 History vaginal cream trazodone 100 mg tablet 100 mg PO .hs #90 tabs 05/20/22 07/14/22 Rx levothyroxine 125 mcg tablet 125 mcg PO DAILY #90 tabs 05/27/22 07/14/22 Rx cyclobenzaprine 10 mg tablet 10 mg PO .hs PRN muscle spasm #30 06/08/22 07/14/22 Rx tabs gabapentin 300 mg capsule 300 mg PO TID PRN Pain #90 caps 07/06/22 07/14/22 Rx ezetimibe 10 mg tablet 10 mg HS 07/14/22 07/14/22 History lisinopril 20 mg tablet 20 mg PO HS 07/14/22 07/14/22 History omeprazole 40 mg capsule,delayed 40 mg PO DAILY #90 caps 07/17/22 Rx release chlorhexidine gluconate 4 % 1 applic topical DAILY #237 mL 07/23/22 Rx topical liquid (Hibiclens) tramadol 50 mg tablet 50 mg PO BID PRN pain #60 tabs 07/31/22 Rx ECG: Date of Service: 04/08/22 Procedure(s): CA 12 lead EKG Accession Number(s): [id number] cc: ~ ? Measurements Intervals? [place]ane? Rate: ? 71 ? P:? 37 [place]: ? 157? QRS:? 33 QRSD: ? 88 ? T:? 43 QT: ? 375? QTc:? 409? Interpretive Statements SINUS RHYTHM NO PREVIOUS ECG AVAILABLE FOR COMPARISON Electronically Signed On 04-08-2022 15:32:36 SPLICING SUPERVISOR by Pierre Ellis M.D. Patient hx anesthesia problems: none Family hx anesthesia problems: none Results Review: All pre-operative results and documents have been reviewed as part of the pre-operative evaluation. 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 Morrow History of hernia repair 06/25/2003, 07/27/[address] Vega Histo
--- NOTE | 2022-08-03 14:26 | WPDANESPNB ---
Anes - Peripheral Nerve Block Date/Time: 08/03/22 14:26 I have discussed with the patient/family/POA the placement of a peripheral nerve block for post-operative pain management, including associated risks, benefits, complications, and side effects. Alternative methods of post-operative analgesia were detailed. Questions were solicited and answers provided to the satisfaction of the patient/family/POA. Time-Out: A pre-procedural Time-Out was completed immediately before starting the procedure and confirmed: Patient Identification, Site, Procedure, Patient Position and the Availability of Requisite Equipment. Clinical Indications: Acute post-operative pain management requested by the operative surgeon. Nerve Block Insertion Note Anes-nerve block: adductor canal Patient position: supine Skin prep: chlorhexidine Needle: 22 gauge, stimulating, insulated echogenic needle. Needle length: 80 mm Technique: ultrasound Technique comment: in plane Injectate: bupivacaine 0.25% with epi 5 mcg/ml (30cc) Observations: tolerated well Complications: none Procedure start time:: 730 Procedure end time:: 73
[2022-08-04] VITALS (14 sets, daily range): BP systolic 107–151; BP diastolic 70–85; PULSE 74–94; RESP 16–20; TEMP 29–36.8; O2SAT 92–100
--- NOTE | ~2022-08-04 | XR_ITS ---
EXAMINATION: [id number] DATE: 08/04/2022 10:36 INDICATION: Total left knee arthroplasty. Postop. TECHNIQUE: 2 views of left knee were obtained. COMPARISON: Left knee radiographs 03/17/2022 FINDINGS: There is a total left knee arthroplasty in near-anatomic alignment without patellar resurfa cing. No fracture. There has been resection of patellar osteophytes. There is gas in the knee joint a nd soft tissues, consistent with recent surgery. Anterior skin sancho are noted. IMPRESSION: 1. Total left knee arthroplasty in near-anatomic alignment. Reviewed, dictated and finalized at location A.
[2022-08-04] MEDS: ACETAMINOPHEN 500 MG TABLET 1000 MG PO (06:56)
[2022-08-04] MEDS: LACTATED RINGERS 1,000 ML 30 ML IV CONT ×2 (06:57→10:15)
--- NOTE | 2022-08-04 07:09 | WPDHPUPDATE1 ---
History and Physical Update Update Date/Time: 08/04/22 07:09 History and Physical has been reviewed, including an updated exam of the patient. There are NO changes in the patient's condition. Risks, benefits, and alternatives have been discussed and questions answered. Patient agrees to proceed with procedure.
[2022-08-04] MEDS: TRANEXAMIC ACID 1,000MG/ISO100 1,000 MG/100 ML BAG 200 MG IVPB (07:50)
[2022-08-04] MEDS: ceFAZolin 2 GM/D5W 50 ML 2 GM/50 ML BAG IVPB ×3 (08:05→23:45)
[2022-08-04] MEDS: LIDOCAINE HCL 1% LOCAL INJ 20 ML VIAL INFILTRATE (08:32)
[2022-08-04] MEDS: methylPREDNISolone ACETATE 80 MG/ML VIAL XX (08:33)
[2022-08-04] MEDS: TRANEXAMIC ACID 1,000 MG/10 ML AMPUL 1000 MG IV PUSH (09:41)
[2022-08-04] MEDS: fentaNYL CITRATE INJ (*CRX) 100 MCG/2 ML VIAL 25 MCG IV PUSH ×8 (10:23→10:50)
--- NOTE | 2022-08-04 10:38 | P.OP_ITS ---
Procedure Note - Detailed Date of Procedure 08/04/22 Pre-op Diagnosis Left Knee djd, rt middle trigger finger Post-op Diagnosis Same Procedure Performed LEFT TKA AND RIGHT MIDDLE FINGER A1 ADRIAN INJECTION Surgeon Toni Rodarte MD Anesthesia General Description of Procedure THE LEFT KNEE WAS PREPPED AND DRAPED IN THE STERILE FASHION. A MIDLINE SKIN INCISION WAS MADE. A MEDIAL PARAPATELLAR ARTHROTOMY WAS MADE. THE PATELLA WAS EVERTED. THERE WAS TRICOMPARTMENT DJD. THERE WAS MINIMAL PATELLA DJD. AN INT RAMEDULLARY FABIÁN WAS PLACED IN THE FEMUR. A DISTAL FEMORAL CUT WAS MADE IN 5 DEGREES OF VALGUS REMOVING APPROXIMATELY 9 MM OF BONE FROM THE DISTAL FEMUR. THE FEMUR WAS SIZED TO 65. A 65 FEMORAL CUTTING BLOCK WAS PLACED IN 3 DEGREES OF EXTERNAL ROTATION AND IN ALIGNMENT WITH NGUYỄN'S LINE AND THE TRANSEPICONDYLAR AXIS. ANTERIOR POSTERIOR AND CHAMFER CUTS WERE MADE. THE CUTS WERE EXCELLENT. NEXT AN INTRAMEDULLARY CUTTING GUIDE WAS PLACED IN THE TIBIA. A TRANS TIBIAL CUT WAS MADE ALONG THE LONG AXIS OF THE TIBIA. APPROXIMATELY 10 MM OF BONE WAS REMOVED FROM THE HIGH SIDE OF THE TIBIA. THE TIBIA WAS THEN PLANED TO A SMOOTH SURFACE. POSTERIOR FEMORAL OSTEOPHYTES WERE REMOVED FROM THE FEMORAL CONDYLES. A 71 TIBIAL TRIAL WAS PLACED IN ALIGNMENT WITH THE 1/3 MEDIAL ASPECT OF THE TIBIAL TUBERCLE. THEN A 65 FEMORAL TRIAL COMPONENT WAS PLACED. BOTH HAD EXCELLENT FITS. EVENTUALLY A 14 MM POLYETHYLENE TRIAL COMPONENT WAS PLACED. THE KNEE WAS TAKEN THROUGH A RANGE OF MOTION. THE KNEE CAME OUT TO FULL EXTENSION. THERE WAS NO ABNORMAL TILT TO THE PATELLA. THERE WAS GOOD A/P AND VARUS/VALGUS STABILITY. THERE WAS NO EXCESSIVE ROLL BACK WITH FLEXION. THE TRIAL COMPONENTS WERE REMOVED. THEN A 65 FEMORAL COMPONENT AND 71 TIBIAL COMPONENT WITH A 14 POLYETHYLENE COMPONENT WERE CEMENTED INTO PLACE. ONCE THE CEMENT WAS HARD THE KNEE WAS TAKEN THROUGH A ROM AGAIN AND FOUND TO BE STABLE WITH NO PATELLA TILT NO EXCESSIVE ROLL BACK WITH FLEXION AND GOOD STABILITY WITH COMPLETE AND FULL EXTENSION. THE KNEE WAS IRRIGATED WITH STERILE BETADINE AND WATER FOR ABOUT 3 MINUTES. THE BLEEDERS WERE CAUTERIZED. THE ARTHROTOMY WAS REPAIRED WITH NUMBER 1 VICRYL. THE SUB CUTANEOUS LAYER WITH 2-0 VICRYL AND THE SKIN WITH BARRY. THE WOUND WAS WASHED AND A STERILE DRESSING WAS APPLIED. NEXT THE RIGHT MIDDLE FINGER A1 ADRIAN WAS IDENTIFIED AND PREPPED. AN INJECTION WITH 0.5 CC DEPO MEDROL 80 MG AND 0.5 CC LIDOCAINE 1% WAS INJECTED INTO THE AI ADRIAN. BANDAGE WAS APPLIED. PATIENT WAS EXTUBATED. Estimated Blood Loss -20.0 Pathology None sent Complications No immediate complications Condition Stable Disposition PACU
[2022-08-04] MEDS: ONDANSETRON INJ 4 MG/2 ML VIAL IV PUSH (11:03)
[2022-08-04] MEDS: HYDROmorphone HCL INJ (*CRX) 1 MG/ML SYR 0.5 MG IV PUSH (11:04)
--- NOTE | 2022-08-04 12:59 | ADMGEN ---
This patient, Lizeth Valdes, was admitted to [facility] Surg Room 309-01. Patient/family oriented to hospital policies and general routines including ID bracelet, bed and alarms, visiting hours, pain management, procedures, bathroom and other care routines, personal items, smoking policy, room service/diet, and visiting hours. Information on how to activate the Rapid Response Team has been discussed. Patient/Family are encouraged to report perceived risks to care and to ask questions if they do not understand what they are told or what they should do.
[2022-08-04] MEDS: KETOROLAC 15 MG/ML VIAL (*BKC) IV PUSH (13:27)
[2022-08-04] MEDS: diazePAM (*CRX) 5 MG TABLET PO (13:28)
--- NOTE | 2022-08-04 16:18 | PCPTNOTE ---
On 08/04/22, the student, [Delaney Simental], provided care and completed [facility] documentation on this patient. I have reviewed the student's documentation and agree with the findings.
[2022-08-04] MEDS: oxyCODONE/ACETAMINOPHEN (*CRX) 5-325 MG TABLET 1 TABLET PO (16:23)
[2022-08-04] MEDS: SENNA/DOCUSATE SODIUM TABLET 2 TAB PO (16:24)
[2022-08-04] MEDS: GABAPENTIN 300 MG CAPSULE PO (20:11)
[2022-08-04] MEDS: PANTOPRAZOLE 40 MG TABLET PO (21:33)
[2022-08-04] MEDS: METOPROLOL SUCCINATE EXT REL 25 MG TABCR PO (21:33)
[2022-08-04] MEDS: ASPIRIN 81 MG ENTERIC TABLET PO (21:33)
[2022-08-04] MEDS: lisinopriL 20 MG TABLET PO (21:33)
[2022-08-04] MEDS: traZODone HCL 50 MG TABLET 100 MG PO (21:33)
[2022-08-04] MEDS: EZETIMIBE 10 MG TABLET BY MOUTH (21:34)
[2022-08-05] MEDS: ceFAZolin 2 GM/D5W 50 ML 2 GM/50 ML BAG IVPB (08:45)
[2022-08-05] MEDS: CHOLECALCIFEROL 1,000 UNITS TABLET 2000 UNITS PO (09:40)
[2022-08-05] MEDS: oxyBUTYnin CHLORIDE XL 5 MG TAB.ER.24 10 MG PO (09:40)
[2022-08-05] MEDS: PANTOPRAZOLE 40 MG TABLET PO (09:40)
[2022-08-05] MEDS: SENNA/DOCUSATE SODIUM TABLET 2 TAB PO (09:40)
[2022-08-05] MEDS: polyethylene glycoL 3350 17 GM POWD.PACK PO (09:40)
[2022-08-05] MEDS: ATORVASTATIN 40 MG TABLET 80 MG PO (09:40)
--- NOTE | 2022-08-05 10:00 | PCPTNOTE ---
On 08/05/22, the student, Alaina MCKINNON, provided care and completed [facility] documentation on this patient. I have reviewed the student's documentation and agree with the findings.
--- NOTE | 2022-08-05 19:15 | PC.NURSE ---
Paper documentation exists on this patient due to [employer] downtime on 08/05/22 from 0030 to 1930.
[2022-08-06 12:19] LABS: Hematocrit 30.7 % (37.0-47.0); Hemoglobin 9.9 g/dL (12.0-15.0); Mean Corpuscular HGB Conc 32.2 g/dl (32-36); Mean Corpuscular Hemoglobin 30.7 pg (26-34); Mean Platelet Volume 10.1 fl (7.4-10.4); Platelet Count Result 192 k/mm3 (150-375); Red Blood Count 3.23 M/mm3 (4.2-5.4); Red Cell Distribution Width 12.5 % (11.5-14.5); White Blood Count 9.3 K/mm3 (4.5-10.0)
[2022-08-06 12:20] LABS: Basophils Percent Auto 0.2 % (0.2-1.2); Eosinophils Percent Auto 0.1 % (0-4.4); Immature Granulocyte Absolute 0.03 K/mm3 (0.00-0.031); Immature Granulocyte Percent A 0.3 % (0-0.5); Lymphocytes Absolute Auto 1.03 K/mm3 (0.9-3.2); Lymphocytes Percent Auto 11.1 % (18.3-44.2); Monocytes Absolute Auto 1.1 K/mm3 (0.1-0.6); Monocytes Percent Auto 11.9 % (2.6-8.5); Neutrophils Absolute Auto 7.1 K/mm3 (1.3-6.7); Neutrophils Percent Auto 76.4 % (45.5-73.1)
== END 2022-08-05 19:00 | disposition home or self-care (01) ==
LOC: ANHSURGERY 06:00 → ANH3MEDSUR 12:08
PROVIDERS: PCP Internal Medicine; Visit Provider Orthopaedic Surgery
PROC: (CPT 27447; principal; 2022-08-04 07:30)
DX: M17.12 Unilateral primary osteoarthritis, left knee (principal); M65.331 Trigger finger, right middle finger; G89.18 Other acute postprocedural pain; I25.10 Atherosclerotic heart disease of native coronary artery without angina pectoris; Z95.5 Presence of coronary angioplasty implant and graft; K21.9 Gastro-esophageal reflux disease without esophagitis; E78.5 Hyperlipidemia, unspecified; I10 Essential (primary) hypertension; E03.9 Hypothyroidism, unspecified; Z87.891 Personal history of nicotine dependence; Z79.82 Long term (current) use of aspirin; F12.90 Cannabis use, unspecified, uncomplicated; E66.9 Obesity, unspecified; Z68.30 Body mass index [BMI] 30.0-30.9, adult
CPT/HCPCS: 27447; 64447; 20550; 36415; 73560; 80048; 80307; 81001; 82040; 83036; 85025; 85610; 85730; 86850; 86900; 86901; 87081; 97110; 97116; 97161; 97165; 97530; 97535; A9270; C1713; C1776; J0171; J0690; J1040; J1100; J1170; J1885; J2250; J2270; J2405; J2704; J2795; J3010; J7120

== ENCOUNTER 2022-08-11 12:59 | Outpatient (CLI) | payer OTHER, SELFPAY ==
--- NOTE | ~2022-08-11 | US_ITS ---
EXAMINATION: US venous doppler [facility] DATE: 08/11/2022 13:51 INDICATION: Leg swelling and pain. TECHNIQUE: Grayscale images without and with compression and Doppler images of the left lower extremi ty veins were obtained. COMPARISON: None FINDINGS: The left common femoral vein, profunda (deep) femoral vein, femoral vein, popliteal vein, peroneal v ein, posterior tibial veins, gastrocnemius vein, and greater saphenous vein are patent. IMPRESSION: 1. Patent left lower extremity veins. No evidence of deep venous thrombosis. Reviewed, dictated and finalized at location K.
== END 2022-08-11 13:00 | disposition home or self-care (01) ==
PROVIDERS: PCP Internal Medicine; Visit Provider Orthopaedic Surgery
DX: M79.662 Pain in left lower leg (principal)
CPT/HCPCS: 93971

== ENCOUNTER 2022-11-09 17:19 | Emergency (ER) | payer OTHER, SELFPAY ==
[2022-11-09 17:30] VITALS: BP 176/101; PULSE 69; RESP 18; TEMP 36.9; O2SAT 100
--- NOTE | 2022-11-09 17:31 | ED.DIZZY ---
HPI - Dizziness General Chief Complaint: Upper Respiratory Infection Stated Complaint: Dizzy spells Time Seen by Provider: 11/09/22 17:31 Source: patient Mode of arrival: ambulatory Limitations: no limitations History of Present Illness HPI Narrative: Patient is a 66-year-old female who presents with dizziness that started at midnight. There was no chest pain, headache, palpitations, nausea or vomiting before the dizziness started. Patient states dizziness comes and goes and worsens with turning head side to side. Patient does also report some urinary frequency and urgency but denies any burning with urination. States she has had vertigo in the past and was told she needed to go to physical therapy. Denies any vision changes, unilateral tingling, numbness or weakness. Also reports started been many COVID positive people at work. Related Data Home Medications Medication Instructions Recorded Confirmed aspirin 81 mg tablet,delayed 81 mg PO HS 03/28/19 08/27/22 release (Adult Low Dose Aspirin) atorvastatin 80 mg tablet 80 mg PO DAILY 03/28/19 08/27/22 metoprolol succinate 25 mg capsule 25 mg PO HS 03/28/19 08/27/22 sprinkle, ext. release 24 hr omega-3 fatty acids 1,000 mg 1,000 mg PO DAILY 09/26/19 08/27/22 capsule (Fish Oil Concentrate) oxybutynin chloride 10 mg 10 mg PO DAILY 12/01/21 08/27/22 tablet,extended release 24 hr vitamins A,C,P-vcok-lqleir 4,296 1 cap PO BID 12/01/21 08/27/22 mcg-226 mg-90 mg capsule (PreserVision AREDS) cholecalciferol (vitamin D3) 25 50 unit PO DAILY 12/04/21 08/27/22 mcg (1,000 unit) capsule estradiol 0.01% (0.1 mg/gram) See Rx Instructions .Route .COMPLEX 01/11/22 08/27/22 vaginal cream ezetimibe 10 mg tablet 10 mg HS 07/14/22 08/27/22 lisinopril 20 mg tablet 20 mg PO HS 07/14/22 08/27/22 Allergies Allergy/AdvReac Type Severity Reaction Status Date / Time Penicillins Allergy Mild Hives Verified 11/09/22 17:50 morphine AdvReac Severe Vomiting Verified 11/09/22 17:50 Review of Systems Review of Systems: All systems reviewed & are unremarkable except as noted in HPI and below Constitutional: Constitutional: Denies body ache(s), Denies chills, Denies fatigue, Denies fever(s), Denies headache(s), Denies malaise and Denies weakness Eyes: Eyes: Denies blurry vision, Denies irritation and Denies loss of vision ENT: Denies otalgia, Denies headache(s), Denies nasal discharge, Denies sinus pain and Denies sore throat Cardiovascular: Cardiovascular: Denies chest pain, Denies irregular heart rhythm and Denies dyspnea Respiratory: Respiratory: Denies dyspnea Gastrointestinal: Gastrointestinal: Denies abdominal pain, Denies melena, Denies hematochezia, Denies diarrhea, Denies nausea and Denies vomiting Genitourinary: Genitourinary: Reports nocturia and Reports urinary urgency Musculoskeletal: Musculoskeletal: Denies back pain, Denies myalgias and Denies arthralgias Integumentary/Breasts: Skin/Breast: Denies pruritus and Denies rash Neurologic: Reports dizziness, Denies headache(s), Denies loss of vision, Denies numbness, Denies tingling and Denies weakness Psychiatric: Psychiatric: Reports no additional psychiatric complaints Endocrine: Endocrine: Denies fatigue PMFSH Past Medical History Medical History CAD (coronary artery disease) stents in place 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 Morrow History of hernia repair 06/25/2003, 07/27/[address] Vega History of hysterectomy
[2022-11-09 19:10] VITALS: BP 168/96
== END 2022-11-09 19:10 | disposition home or self-care (01) ==
PROVIDERS: Emergency Provider Nurse Practitioner Family; PCP Internal Medicine
DX: N39.0 Urinary tract infection, site not specified (principal); Z20.822 Contact with and (suspected) exposure to COVID-19; Z87.891 Personal history of nicotine dependence; I25.10 Atherosclerotic heart disease of native coronary artery without angina pectoris; Z95.5 Presence of coronary angioplasty implant and graft; M19.012 Primary osteoarthritis, left shoulder; M19.011 Primary osteoarthritis, right shoulder; K21.9 Gastro-esophageal reflux disease without esophagitis; E78.5 Hyperlipidemia, unspecified; E03.9 Hypothyroidism, unspecified; M17.0 Bilateral primary osteoarthritis of knee; Z96.652 Presence of left artificial knee joint; Z79.82 Long term (current) use of aspirin
CPT/HCPCS: 81003; 87077; 87086; 87186; 87426; 99213; C9803; G0463

== ENCOUNTER 2023-02-09 10:11 | Outpatient (CLI) | payer OTHER, SELFPAY ==
--- NOTE | ~2023-02-09 | MM_ITS ---
EXAMINATION: MM screening silvia BI w kenneth HISTORY: Screening mammogram TECHNIQUE: Craniocaudal and mediolateral oblique 3-D tomosynthesis images were obtained and synthetic 2-D images were generated. CAD analysis was submitted and interpreted. COMPARISON: 07/25/2020, 06/07/2018, 05/26/2017 bilateral screening mammogram examinations BREAST PARENCHYMAL COMPOSITION: The breasts are almost entirely fatty. FINDINGS: Multiple scattered bilateral benign calcifications. There is no evidence of suspicious mass , calcification, or architectural distortion to suggest malignancy in either breast. There has been n o suspicious interval change. IMPRESSION: 1. No mammographic evidence of malignancy. 2. Recommend routine screening mammography in one year. BI-RADS Category 2: Benign finding(s). Reviewed, dictated and finalized at location A. [facility]OR INTERNAL CONTROL
== END 2023-02-09 10:12 | disposition home or self-care (01) ==
PROVIDERS: PCP Internal Medicine; Visit Provider Obstetrics & Gynecology
DX: Z12.31 Encounter for screening mammogram for malignant neoplasm of breast (principal)
CPT/HCPCS: 77063; 77067

== ENCOUNTER 2023-06-15 13:40 | Outpatient (CLI) | payer OTHER, SELFPAY ==
--- NOTE | ~2023-06-15 | XR_ITS ---
XR sacroiliac joints min 3V 06/15/2023 14:12 Indication: Rheumatoid arthritis Procedure: 3 views of the sacroiliac joints Comparison: 01/07/2022 Findings: Stable mild symmetric bilateral degenerative changes of the sacroiliac joints. No erosive c hanges. No evidence for ankylosis. There is mild symmetric osteoarthritis of the hips. There is lower lumbar spondylosis partially visualized. 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 Reviewed, dictated and finalized at location B. 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
--- NOTE | ~2023-06-15 | XR_ITS ---
Bilateral Hands Technique: Bilateral PA, oblique, and lateral views, and ball-catcher's view were obtained. Clinical History: Rheumatoid arthritis Findings: No acute fracture or dislocation is seen. Osseous alignment is anatomic. There is mild to m oderate degenerative change of the third PIP joints bilaterally. Old, healed fracture deformity of th e distal left radius. Soft tissues are unremarkable. Impression: Mild to moderate degenerative change of the third PIP joints bilaterally. No erosive change evident. Old, healed fracture deformity the distal left radius. Reviewed, dictated and finalized at location M. Impression: Mild to moderate degenerative change of the third PIP joints bilaterally. No erosive change evident. Old, healed fracture deformity the distal left radius.
== END 2023-06-15 13:41 | disposition home or self-care (01) ==
LOC: ANHIMG 13:43
PROVIDERS: PCP Internal Medicine; Visit Provider Internal Medicine
DX: M06.09 Rheumatoid arthritis without rheumatoid factor, multiple sites (principal); M46.1 Sacroiliitis, not elsewhere classified; M19.042 Primary osteoarthritis, left hand; M19.041 Primary osteoarthritis, right hand
CPT/HCPCS: 72202; 73130

== ENCOUNTER 2023-10-05 14:37 | Outpatient (CLI) | payer OTHER, SELFPAY ==
--- NOTE | ~2023-10-05 | CT_ITS ---
EXAMINATION: CT abdomen pelvis wo/w con DATE: 10/05/2023 15:19 INDICATION: Microscopic hematuria. TECHNIQUE: Computed tomography (CT) of the abdomen and pelvis was performed without and with intraven ous contrast using a total of 130 mL Omnipaque-350 intravenous contrast with a double-bolus technique for simultaneous opacification of the renal parenchyma and renal collecting system. Automated exposu re control and iterative reconstruction technique were employed. The dose-length product was 1968.57 mGy-cm. COMPARISON: CT abdomen and pelvis 06/26/2015 FINDINGS: The visualized portions of lung bases demonstrate mild atelectasis. No pleural effusion. The heart si ze is normal. There are coronary artery calcifications. No pericardial effusion. The liver, gallbladd er, spleen, pancreas, adrenal glands, and kidneys are normal. There is no urolithiasis. Right ureter is not well opacified distally, but is normal. Left ureter is well opacified and is normal. The bladd er is normal. There are no dilated loops of bowel. The appendix is normal. There are changes of ventr al hernia repair. There is calcified atherosclerosis of the aorta and many of the other arteries. The re are no pathologically enlarged lymph nodes. There is no free intraperitoneal fluid. There is sever e thoracic and lumbar spondylosis. IMPRESSION: 1. No etiology for hematuria. Reviewed, dictated and finalized at location A.
[2023-10-05 15:03] LABS: Estimated Glomerular Filt Rate > 60
== END 2023-10-05 14:38 | disposition home or self-care (01) ==
PROVIDERS: PCP Internal Medicine; Visit Provider Physician Assistant
DX: R31.29 Other microscopic hematuria (principal)
CPT/HCPCS: 74178; Q9967

== ENCOUNTER 2023-10-12 01:00 | Day surgery (SDC) | payer OTHER, SELFPAY ==
[2023-09-23 10:17] VITALS: BMI 29.0
--- NOTE | 2023-10-12 12:55 | WPDANESEPPF ---
Anes - Initial Pre Proc Eval Procedure: Operation Date: 10/12/23 15:00 Proposed Procedures p Esophagogastroduodenoscopy - Ricky Jimenez MD Date/Time: 10/12/23 12:55 Surgeon: Ricky Jimenez MD Pre Op Diagnosis: Dysphagia, GERD Patient Data Age: 67 Gender: F Height: 1.68 m Weight: 81.7 kg Allergies Allergy/AdvReac Type Severity Reaction Status Date / Time Penicillins Allergy Mild Hives Verified 09/23/23 10:13 morphine AdvReac Severe Vomiting Verified 09/23/23 10:13 Home Medications Medication Instructions Recorded Confirmed Type aspirin 81 mg tablet,delayed 81 mg PO HS 03/28/19 09/23/23 History release (Adult Low Dose Aspirin) atorvastatin 80 mg tablet 80 mg PO DAILY 03/28/19 09/23/23 History metoprolol succinate 25 mg capsule 25 mg PO HS 03/28/19 09/23/23 History sprinkle, ext. release 24 hr omega-3 fatty acids 1,000 mg 1,000 mg PO DAILY 09/26/19 09/23/23 History capsule (Fish Oil Concentrate) oxybutynin chloride 10 mg 20 mg PO DAILY 12/01/21 09/23/23 History tablet,extended release 24 hr cholecalciferol (vitamin D3) 25 50 unit PO DAILY 12/04/21 09/23/23 History mcg (1,000 unit) capsule estradiol 0.01% (0.1 mg/gram) See Rx Instructions .Route .COMPLEX 01/11/22 09/23/23 History vaginal cream ezetimibe 10 mg tablet 10 mg PO HS 07/14/22 09/23/23 History levothyroxine 125 mcg tablet 125 mcg PO DAILY #90 tabs 03/29/23 09/23/23 Rx trazodone 100 mg tablet 100 mg PO .hs #90 tabs 03/29/23 09/23/23 Rx hydroxychloroquine 200 mg tablet 400 mg PO DAILY #60 tabs 06/14/23 09/23/23 Rx (Plaquenil) lisinopril 20 mg tablet See Rx Instructions .Route 06/22/23 09/23/23 Rx .COMPLEX #90 tabs cyclobenzaprine 10 mg tablet 10 mg PO .hs PRN muscle spasm #30 09/06/23 09/23/23 Rx tabs tramadol 50 mg tablet 50 mg PO BID PRN pain #60 tabs 09/06/23 09/23/23 Rx omeprazole 40 mg capsule,delayed 40 mg PO BID #180 caps 09/08/23 09/23/23 Rx release Patient hx anesthesia problems: none Family hx anesthesia problems: none Results Review: All pre-operative results and documents have been reviewed as part of the pre-operative evaluation. 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 Morrow History of hernia repair 06/25/2003, 07/27/[address] Vega History of hysterectomy 08/12/[address] Alvarado [place] History of surgery on wrist (2) RT repair 03/31/12, 05/13/2014 History of tonsillectomy Hx of colonoscopy 09/21/2002, 04/23/2014, 08/21/2020 S/P angioplasty with stent 07/04/1999 S/P left rotator cuff repair 07/27/2016 [place] S/P right rotator cuff repair 07/03/[address] Morrow S/P total knee arthroplasty LT TKA 08/04/22 Family History Family History Father Family history of cardiovascular disease Mother Family history of cardiovascular disease Sibling Family history of cardiovascular disease Family history of malignant neoplasm Other Cerebrovascular accident Diabetes mellitus Family history of alcoholism Family history of arthritis Family history of gout Hyperlipidemia Hypertension Neuropathy Social History Social History (Reviewed 10/12/23 @ 12:57 by Gerry Gamboa
[2023-10-12 13:24] VITALS: BP 141/86; PULSE 70; RESP 18; TEMP 36.4; O2SAT 100
--- NOTE | 2023-10-12 13:27 | PM.HPGS ---
History of Present Illness History of Present Illness Consent: Risks, benefits, and alternatives have been discussed and questions answered. Patient agrees to proceed with procedure. 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 Morrow History of hernia repair 06/25/2003, 07/27/[address] Vega History of hysterectomy 08/12/[address] Alvarado [place] History of surgery on wrist (2) RT repair 03/31/12, 05/13/2014 History of tonsillectomy Hx of colonoscopy 09/21/2002, 04/23/2014, 08/21/2020 S/P angioplasty with stent 07/04/1999 S/P left rotator cuff repair 07/27/2016 [place] S/P right rotator cuff repair 07/03/[address] Morrow S/P total knee arthroplasty LT TKA 08/04/22 Family History Family History Father Family history of cardiovascular disease Mother Family history of cardiovascular disease Sibling Family history of cardiovascular disease Family history of malignant neoplasm Other Cerebrovascular accident Diabetes mellitus Family history of alcoholism Family history of arthritis Family history of gout Hyperlipidemia Hypertension Neuropathy Social History Social History Smoking packs per day: 2 Smoking cigarettes per day: 40.0 Years smoked: 20 Smoking pack-years: 40.00 Smoking status: Former smoker Tobacco type: cigarettes Second hand tobacco smoke exposure: No Smoking end date: 02/22/99 Additional smoking assessment comments: PT DENIES ALL FORMS OF TOBACCO USE Alcohol intake: current Drinks per week: 5 Alcohol use details: seldom Substance use: current Substance use type: marijuana Other substance usage details: STATES OCCASIONAL GUMMY @ HS - LAST USED COUPLE MONTHS AGO Last use: tried gummies and rub for pain last year Lack of Transportation: No Lack of Food: Never True Current Housing: I Have Housing Concerned About Future Housing: No Difficulty Paying Gas/Electric Bills: No Difficulty Paying for Meds: No Currently Unemployed: No Education: Decline to Answer Difficulty w/ Childcare or Family Care: No Living arrangements: alone Gender identity (if verbalized by the patient): Female Spiritual care concerns: No Meds Home Medications and Allergies Home Medications Medication Instructions Recorded Confirmed Type aspirin 81 mg tablet,delayed 81 mg PO HS 03/28/19 10/12/23 History release (Adult Low Dose Aspirin) atorvastatin 80 mg tablet 80 mg PO DAILY 03/28/19 10/12/23 History metoprolol succinate 25 mg capsule 25 mg PO HS 03/28/19 10/12/23 History sprinkle, ext. release 24 hr omega-3 fatty acids 1,000 mg 1,000 mg PO DAILY 09/26/19 10/12/23 History capsule (Fish Oil Concentrate) oxybutynin chloride 10 mg 20 mg PO DAILY 12/01/21 10/12/23 History tablet,extended release 24 hr cholecalciferol (vitamin D3) 25 50 unit PO D
[2023-10-12] MEDS: LACTATED RINGERS 1,000 ML 150 ML IV CONT (13:36)
[2023-10-12 13:42] VITALS: BP 134/74; PULSE 73; RESP 18; O2SAT 100
[2023-10-12 13:52] VITALS: BP 128/71; PULSE 62; RESP 20; O2SAT 98
[2023-10-12 14:02] VITALS: BP 129/81; PULSE 61; RESP 22; O2SAT 94
== END 2023-10-12 14:12 | disposition home or self-care (01) ==
PROVIDERS: PCP Internal Medicine; Referring Provider Nurse Practitioner; Visit Provider Internal Medicine Gastroenterology
PROC: 0DJ08ZZ Inspection of Upper Intestinal Tract, Via Natural or Artificial Opening Endoscopic (ICD-10-PCS; CPT 43235; principal; 2023-10-12 15:00)
DX: K21.00 Gastro-esophageal reflux disease with esophagitis, without bleeding (principal); K31.89 Other diseases of stomach and duodenum; I10 Essential (primary) hypertension; E78.5 Hyperlipidemia, unspecified; E03.9 Hypothyroidism, unspecified; I25.10 Atherosclerotic heart disease of native coronary artery without angina pectoris; M19.012 Primary osteoarthritis, left shoulder; M19.011 Primary osteoarthritis, right shoulder; M17.0 Bilateral primary osteoarthritis of knee; M06.09 Rheumatoid arthritis without rheumatoid factor, multiple sites; F12.90 Cannabis use, unspecified, uncomplicated; Z79.82 Long term (current) use of aspirin; Z79.891 Long term (current) use of opiate analgesic; Z98.890 Other specified postprocedural states; Z98.61 Coronary angioplasty status; Z87.891 Personal history of nicotine dependence; Z80.9 Family history of malignant neoplasm, unspecified; Z82.49 Family history of ischemic heart disease and other diseases of the circulatory system
CPT/HCPCS: 43239; 43450; 88305; J2704; J7120

== ENCOUNTER 2024-01-11 13:25 | Emergency (ER) | payer OTHER, SELFPAY ==
[2024-01-11 13:33] VITALS: BP 100/72; PULSE 80; RESP 15; TEMP 36.4; O2SAT 99
--- NOTE | 2024-01-11 13:51 | ED.FEMALEGU ---
HPI - Female Genitourinary General Chief complaint: Urogenital-Female Stated complaint: Uti Symptoms Time Seen by Provider: 01/11/24 13:52 Source: patient and RN notes reviewed Mode of arrival: ambulatory Limitations: no limitations History of Present Illness HPI Narrative: 68-year-old female presents with concern for urinary tract infection. She reports several week history of dysuria, frequency, urgency, suprapubic pressure. She denies fever, aches, chills, sweats. MD elicited complaint: UTI Related Data Home Medications Medication Instructions Recorded Confirmed aspirin 81 mg tablet,delayed 81 mg PO HS 03/28/19 01/06/24 release (Adult Low Dose Aspirin) atorvastatin 80 mg tablet 80 mg PO DAILY 03/28/19 01/06/24 metoprolol succinate 25 mg capsule 25 mg PO HS 03/28/19 01/06/24 sprinkle, ext. release 24 hr omega-3 fatty acids 1,000 mg 1,000 mg PO DAILY 09/26/19 01/06/24 capsule (Fish Oil Concentrate) oxybutynin chloride 10 mg 20 mg PO DAILY 12/01/21 01/06/24 tablet,extended release 24 hr cholecalciferol (vitamin D3) 25 50 unit PO DAILY 12/04/21 01/06/24 mcg (1,000 unit) capsule estradiol 0.01% (0.1 mg/gram) See Rx Instructions .Route .COMPLEX 01/11/22 01/06/24 vaginal cream ezetimibe 10 mg tablet 10 mg PO HS 07/14/22 01/06/24 levothyroxine 125 mcg tablet 125 mcg PO DAILY 10/12/23 01/06/24 gabapentin 300 mg capsule mg PO DAILY 01/06/24 01/06/24 Allergies Allergy/AdvReac Type Severity Reaction Status Date / Time Penicillins Allergy Mild Hives Verified 01/11/24 13:45 morphine AdvReac Severe Vomiting Verified 01/11/24 13:45 Review of Systems Review of Systems: CONSTITUTIONAL: Denies malaise, chills, sweats, or fever. CARDIOVASCULAR: Denies chest pain, palpitations, or edema. RESPIRATORY: Denies cough or dyspnea. GASTROINTESTINAL: Denies abdominal pain, nausea, vomiting, diarrhea GENITOURINARY: Reports dysuria, frequency, urgency, suprapubic pressure. Denies flank pain or hematuria. SKIN: Denies rash or itching. MUSCULOSKELETAL: Denies back pain or myalgia. 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 Morrow History of hernia repair 06/25/2003, 07/27/[address] Vega History of hysterectomy 08/12/[address] Alvarado [place] History of surgery on wrist (2) RT repair 03/31/12, 05/13/2014 History of tonsillectomy Hx of colonoscopy 09/21/2002, 04/23/2014, 08/21/2020 S/P angioplasty with stent 07/04/1999 S/P left rotator cuff repair 07/27/2016 [place] S/P right rotator cuff repair 07/03/[address] Morrow S/P total knee arthroplasty LT TKA 08/04/22 Family History Family History Father Family history of cardiovascular disease Mother Family history of cardiovascular disease Sibling Family history of cardiovascular disease Family history of malignant neoplasm Heart disease Hypertension Thyroid disorder Other Cerebrovascular accident Diabetes mellitus Family history of alcoholism Family history of arthritis Family history of gout Hyperlipidemia Neuropathy Social History Social History Smoking packs per day: 2 Smoking cigarettes per day: 40.0 Years smoked: 20 Smoking pack-years: 40.00 Smoking status: Former smoker Tobacco type: cigarettes Second hand tobacco smoke exposure: No Smoking end date: 02/22/99 Additional smoking assessment comments: PT DENIES ALL FORMS OF TOBACCO USE Alcohol intake: current Drinks per week: 5 Alcohol use details: seldom Substance use: current Substance use type: marijuana Other substance usage details: STATES OCCASIONAL GUMMY @ HS - LAST USED COUPLE MONTHS AGO Last use: tried gummies and rub for pain last year Lack of Transportation: No Lack of Food: Never True Current Housing: I Have Housing Concerned About Future Housing: No Difficulty Paying Gas/Electric Bills: No Difficulty Paying for Meds: No Currently Unemployed: No Education: Decline to Answer Difficulty w/ Childcare or Family Care: No Living arrangements: alone Gender identity (if verbalized by the patient): Female Spiritual care concerns: No Comments At time of signature, agree with nursing past medical, surgical, social and family history. There is no relevant family history pertinent to the presenting complaint Exam Narrative: GENERAL: Well-appearing, well-nourished, and in no acute distress. HEAD: Normocephalic. EYES: PERRLA, conjunctivae clear. NECK: Supple. No lymphadenopathy CHEST: Clear to auscultation. No respiratory distress. HEART: Regular rate and rhythm. ABDOMEN: Soft, nontender upon palpation, nondistended, normal active bowel sounds, no palpable or pulsatile masses, no guarding. No CVA tenderness SKIN: Warm, dry, no rash. NEURO: Alert and oriented x3. PSYCH: Normal mood and affect Course Course Emergency Course: Patient is aware of diagnosis, understands and agrees to treatment plan. Anticipatory guidance given. Patient agrees to follow-up as directed and is aware of reasons to seek care at the emergency department. Portions of this record may have been created with voice recognition software Level of Care: Express Care Visit Vital Signs Vital signs: Vital Signs Temperature 97.6 F 01/11/24 13:33 Pulse Rate 80 01/11/24 13:33 Respiratory Rate 15 01/11/24 13:33 Blood Pressure 100/72 01/11/24 13:33 Pulse Oximetry 99 01/11/24 13:33 Oxygen Delivery Room Air 01/11/24 13:33 Temperature 97.6 F 01/11/24 13:33 Pulse Rate 80 01/11/24 13:33 Respiratory Rate 15 01/11/24 13:33 Blood Pressure 100/72 01/11/24 13:33 Pulse Oximetry 99 01/11/24 13:33 Oxygen Delivery Room Air 01/11/24 13:33 Reviewed. MDM - Female Genitourinary MDM Narrative Medical decision making narrative: Exam findings and UA show no acute concerns or changes; patient is non-toxic appearing and is in no distress. Patient is appropriate for outpatient treatment and follow-up. Differential Diagnosis Differential diagnosis: Likely urinary tract infection and cystitis Critical Care Time Critical Care Time Critical Care Time: No Discharge Plan Discharge Clinical Impression: Urinary tract infection Patient Disposition: Home, Self-Care Condition: Stable Instructions: Antibiotic Form, Urinary Tract Infection in Women (ED) Additional Instructions: We will send a urine culture to the lab; if the culture identifies an organism that the prescribed antibiotic will not treat, you will receive a phone call from an urgent care staff member and an appropriate antibiotic will be prescribed. -Your symptoms should begin to improve within a day of starting antibiotics. But you should finish all the antibiotic pills you get. Otherwise your infection might come back. -Also recommend: increase water intake. Tylenol/ibuprofen as needed for pain or fever -Follow-up with your primary care provider for urine recheck or seek ER visit if condition worsens with high fever, nausea, vomiting and severe back pain. Prescriptions: New cephalexin 500 mg capsule 500 mg PO QID 10 Days Qty: 40 0RF No Action estradiol 0.01 % (0.1 mg/gram) cream See Rx Instructions .ROUTE .COMPLEX Rx Instructions: use as directed atorvastatin 80 mg tablet 80 mg PO DAILY metoprolol succinate 25 mg capsule,sprinkle,ER 24hr 25 mg PO HS aspirin [Adult Low Dose Aspirin] 81 mg tablet,delayed release (DR/EC) 81 mg PO HS Hold Instructions: .Provider Order oxybutynin chloride 10 mg tablet extended release 24hr 20 mg PO DAILY gabapentin 300 mg capsule PO DAILY omega-3 fatty acids [Fish Oil Concentrate] 1,000 mg capsule 1,000 mg PO DAILY cholecalciferol (vitamin D3) 25 mcg (1,000 unit) capsule 50 unit PO DAILY Patient Comments: 2,000IU daily omeprazole 40 mg capsule,delayed release(DR/EC) 40 mg PO BID Qty: 180 3RF ezetimibe 10 mg tablet 10 mg PO HS levothyroxine 125 mcg tablet 125 mcg PO DAILY lisinopril 20 mg tablet See Rx Instructions .ROUTE .COMPLEX Qty: 90 2RF Dose Instruction: Take 1 tablet by mouth once daily Rx Instructions: Take 1 tablet by mouth once daily hydroxychloroquine [Plaquenil] 200 mg tablet 400 mg PO DAILY Qty: 60 4RF cyclobenzaprine 10 mg tablet 10 mg PO .hs PRN (Reason: muscle spasm) Qty: 30 0RF tramadol 50 mg tablet 50 mg PO BID PRN (Reason: pain) Qty: 60 0RF Follow-up/Referrals: Elton Rooney MD [Primary Care Provider] - Time of Disposition: 14:03
[2024-01-11 14:04] LABS: EDUAAPPEAR Cloudy; EDUABILI 1+ (Negative); EDUABLOOD 2+ (Negative); EDUACOLOR1 Yellow; EDUAGLUCOSE Negative (Negative); EDUAKETONE Trace (Negative); EDUALEUKO 1+ (Negative); EDUANITRATE Positive (Negative); EDUAPROTEIN 3+ (Negative)
== END 2024-01-11 14:06 | disposition home or self-care (01) ==
PROVIDERS: Emergency Provider Nurse Practitioner; PCP Family Medicine
DX: N39.0 Urinary tract infection, site not specified (principal); B96.20 Unspecified Escherichia coli [E. coli] as the cause of diseases classified elsewhere; Z87.891 Personal history of nicotine dependence; I25.10 Atherosclerotic heart disease of native coronary artery without angina pectoris; Z95.5 Presence of coronary angioplasty implant and graft; M19.012 Primary osteoarthritis, left shoulder; M19.011 Primary osteoarthritis, right shoulder; K21.9 Gastro-esophageal reflux disease without esophagitis; I10 Essential (primary) hypertension; E78.5 Hyperlipidemia, unspecified; M17.0 Bilateral primary osteoarthritis of knee; M06.09 Rheumatoid arthritis without rheumatoid factor, multiple sites; Z96.652 Presence of left artificial knee joint
CPT/HCPCS: 81003; 87086; 87186; 99213; G0463

== ENCOUNTER 2024-05-22 18:13 | Emergency (ER) | payer MEDICARE, SELFPAY ==
--- NOTE | 2024-05-22 18:15 | ED.FEMALEGU ---
HPI - Female Genitourinary General Chief complaint: Urogenital-Female Stated complaint: Uti Symptoms Source: patient and RN notes reviewed Mode of arrival: ambulatory Limitations: no limitations History of Present Illness HPI Narrative: Patient is a 68-year-old female who presents to the [facility] with complaints of dysuria, urinary frequency, and urinary urgency since Wednesday. She states that she did notice hematuria on Wednesday and Wednesday. States that her symptoms are similar to those she has experienced in the past with UTIs. She reports history of frequent UTIs. States the last UTI was on April 25 of this year. Her OBGYN called and cephalexin 500 mg b.i.d. x7 days. She completed this medication and the symptoms resolved. She states that she developed the dysuria and urinary frequency on Wednesday which has continued to worsen. She denies recent fevers. Related Data Home Medications ?Medication ?Instructions ?Recorded ?Confirmed ?Last Taken ?Type aspirin 81 mg tablet,delayed 81 mg PO HS 03/28/19 01/06/24 10/10/23 History release (Adult Low Dose Aspirin) atorvastatin 80 mg tablet 80 mg PO DAILY 03/28/19 01/06/24 10/11/23 History metoprolol succinate 25 mg capsule 25 mg PO HS 03/28/19 01/06/24 10/11/23 History sprinkle, ext. release 24 hr omega-3 fatty acids 1,000 mg 1,000 mg PO DAILY 09/26/19 01/06/24 10/11/23 History capsule (Fish Oil Concentrate) oxybutynin chloride 10 mg 20 mg PO DAILY 12/01/21 01/06/24 10/11/23 History tablet,extended release 24 hr cholecalciferol (vitamin D3) 25 50 unit PO DAILY 12/04/21 01/06/24 10/11/23 History mcg (1,000 unit) capsule estradiol 0.01% (0.1 mg/gram) See Rx Instructions .Route .COMPLEX 01/11/22 01/06/24 10/11/23 History vaginal cream ezetimibe 10 mg tablet 10 mg PO HS 07/14/22 01/06/24 10/11/23 History metoprolol succinate 25 mg mg PO 05/22/24 Unknown History tablet,extended release 24 hr Allergies Allergy/AdvReac Type Severity Reaction Status Date / Time Penicillins Allergy Mild Hives Verified 05/22/24 18:23 morphine AdvReac Severe Vomiting Verified 05/22/24 18:23 Review of Systems Review of Systems: CONSTITUTIONAL: Denies fever, chills, or sweats. EYES: Denies visual changes, redness, or discharge. ENT: Denies otalgia and sore throat CARDIOVASCULAR: Denies chest pain, palpitations, or edema. RESPIRATORY: Denies cough or dyspnea. GASTROINTESTINAL: Denies abdominal pain, nausea, vomiting, or diarrhea. GENITOURINARY: Reports dysuria and hematuria. SKIN: Denies rash or itching. MUSCULOSKELETAL: Denies back pain, joint pain, or myalgia. NEUROLOGIC: Denies headache, numbness, or weakness. Pertinent positives per HPI. 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 Morrow S/P left rotator cuff repair 07/27/2016 [place] S/P right rotator cuff repair 07/03/[address] Morrow History of hernia repair 06/25/2003, 07/27/[address] Vega Hx of colonoscopy 09/21/2002, 04/23/2014, 08/21/2020 History of (3) 1979, 1984, 1986 History of tonsillectomy S/P angioplasty with stent 07/04/1999 History of hysterectomy 08/12/[address] Alvarado Olmstead Family History Family History Father Family history of cardiovascular disease Mother Family history of cardiovascular disease Sibling Family history of cardiovascular disease Family history of malignant neoplasm Heart disease Hypertension Thyroid disorder Other Cerebrovascular accident Diabetes mellitus Family history of alcoholism Family history of arthritis Family history of gout Hyperlipidemia Neuropathy Social History Social History Smoking packs per day: 2 Smoking cigarettes per day: 40.0 Years smoked: 20 Smoking pack-years: 40.00 Smoking status: Former smoker Tobacco type: cigarettes Second hand tobacco smoke exposure: No Smoking end date: 02/22/99 Additional smoking assessment comments: PT DENIES ALL FORMS OF TOBACCO USE Alcohol intake: current Drinks per week: 5 Alcohol use details: seldom Substance use: current Substance use type: marijuana Other substance usage details: STATES OCCASIONAL GUMMY @ HS - LAST USED COUPLE MONTHS AGO Last use: tried gummies and rub for pain last year Lack of Transportation: No Lack of Food: Never True Current Housing: I Have Housing Concerned About Future Housing: No Difficulty Paying Gas/Electric Bills: No Difficulty Paying for Meds: No Currently Unemployed: No Education: Decline to Answer Difficulty w/ Childcare or Family Care: No Living arrangements: alone Gender identity (if verbalized by the patient): Female Spiritual care concerns: No Comments At the time of my signature, I reviewed and agree with the nursing past medical, surgical, social, and family history. There is no relevant family history pertinent to the patient complaint. Exam Narrative: GENERAL: This is a well-nourished, well-developed patient, in no apparent distress. HEAD: normocephalic, atraumatic. EYES: PERRL. Sclera clear/white. Vision is grossly intact. EARS: External ears normal, auditory canals clear and without drainage, TMs normal without perforation. Hearing grossly intact. NOSE: External nose normal with no obvious nasal discharge, nares without redness, no rhinorrhea. THROAT: Mucous membranes moist, posterior pharynx clear. NECK: Neck supple, non-tender without lymphadenopathy, masses or thyromegaly. CARDIOVASCULAR: Regular rate and rhythm without murmurs, gallops, or rubs. RESPIRATORY: Clear to auscultation. Breath sounds equal bilaterally. No wheezes, rales, or rhonchi. GASTROINTESTINAL: Abdomen soft, non-tender, nondistended. Bowel sounds are active. No hepato-splenomegaly, or palpable masses. No guarding. SKIN: warm, intact with no suspicious lesions or rash, good texture and turgor. NEURO: awake, alert, and oriented to person, place and time. There were no obvious focal neurologic abnormalities. EXTREMITIES: No clubbing, cyanosis, or edema. No joint tenderness, effusion, or edema noted. BACK: Nontender without deformity or crepitance. No flank tenderness. Course Course Level of Care: Express Care Visit Vital Signs Vital signs: Vital Signs Temperature 97.9 F 05/22/24 18: Pulse Rate 82 05/22/24 18:25 Respiratory Rate 16 05/22/24 18: Blood Pressure 146/89 H 05/22/24 18: Pulse Oximetry 100 05/22/24 18:25 Temperature 97.9 F 05/22/24 18: Pulse Rate 82 05/22/24 18:25 Respiratory Rate 16 05/22/24 18:25 Blood Pressure 146/89 H 05/22/24 18:25 Pulse Oximetry 100 05/22/24 18:25 Reviewed MDM - Female Genitourinary MDM Narrative Medical decision making narrative: We will send a urine culture off to the lab; if the culture identifies an organism that the prescribed antibiotic will not treat, you will receive a phone call from an urgent care staff member and an appropriate antibiotic will be prescribed. -Your symptoms should begin to improve within a day of starting antibiotics. But you should finish all the antibiotic pills you get. Otherwise your infection might come back. -Also recommend: drink more fluid. It might help flush out germs, and it does no harm -Tylenol/ibuprofen as needed for pain -Follow-up with your primary care provider for urine recheck OR if your symptoms persist, change or worsen significantly before you can contact your personal physician then please, without delay, go to the emergency department for further evaluation. Differential Diagnosis Differential diagnosis: Likely urinary tract infection, vaginitis and cystitis Lab Data Attestation: I reviewed the patient's lab results. Labs: Lab Results 05/22/24 Range/Units 18:30 POC Urine Color Yellow POC Urine Clarity Cloudy POC Urine pH 7.0 POC Ur Specif Ronks 1.015 POC Urine Protein Negative (Negative) POC Ur Glucose (UA) Negative (Negative) POC Urine Ketones Negative (Negative) POC Urine Blood 1+ (Negative) POC Urine Nitrite Positive (Negative) POC Urine Bilirubin Negative (Negative) POC Urine Urobilinogen 0.2 POC U Leukocyte Esteras 2+ (Negative) Critical Care Time Critical Care Time Critical Care Time: No Discharge Plan Discharge Clinical Impression: Acute cystitis with hematuria Patient Disposition: Home, Self-Care Condition: Stable Instructions: Antibiotic Form, Urinary Tract Infection in Women (ED) Additional Instructions: We will send a urine culture off to the lab; if the culture identifies an organism that the prescribed antibiotic will not treat, you will receive a phone call from an urgent care staff member and an appropriate antibiotic will be prescribed. -Your symptoms should begin to improve within a day of starting antibiotics. But you should finish all the antibiotic pills you get. Otherwise your infection might come back. -Also recommend: drink more fluid. It might help flush out germs, and it does no harm -Tylenol/ibuprofen as needed for pain -Follow-up with your primary care provider for urine recheck OR if your symptoms persist, change or worsen significantly before you can contact your personal physician then please, without delay, go to the emergency department for further evaluation. Patient Language: Yakut Prescriptions: New cefdinir 300 mg capsule 300 mg PO Q12H 7 Days Qty: 14 0RF No Action estradiol 0.01 % (0.1 mg/gram) cream See Rx Instructions .ROUTE .COMPLEX Rx Instructions: use as directed metoprolol succinate 25 mg tablet extended release 24 hr PO cephalexin 500 mg capsule 500 mg PO QID 10 Days Qty: 40 0RF atorvastatin 80 mg tablet 80 mg PO DAILY metoprolol succinate 25 mg capsule,sprinkle,ER 24hr 25 mg PO HS aspirin [Adult Low Dose Aspirin] 81 mg tablet,delayed release (DR/EC) 81 mg PO HS oxybutynin chloride 10 mg tablet extended release 24hr 20 mg PO DAILY omega-3 fatty acids [Fish Oil Concentrate] 1,000 mg capsule 1,000 mg PO DAILY cholecalciferol (vitamin D3) 25 mcg (1,000 unit) capsule 50 unit PO DAILY Patient Comments: 2,000IU daily omeprazole 40 mg capsule,delayed release(DR/EC) 40 mg PO BID Qty: 180 3RF ezetimibe 10 mg tablet 10 mg PO HS gabapentin 300 mg capsule 300 mg PO DAILY Qty: 90 0RF cyclobenzaprine 10 mg tablet 10 mg PO .hs PRN (Reason: muscle spasm) Qty: 90 0RF lisinopril 20 mg tablet See Rx Instructions .ROUTE .COMPLEX Qty: 90 3RF Dose Instruction: Take 1 tablet by mouth once daily Rx Instructions: Take 1 tablet by mouth once daily hydroxychloroquine [Plaquenil] 200 mg tablet 400 mg PO DAILY Qty: 60 4RF tramadol 50 mg tablet 50 mg PO BID PRN (Reason: pain) Qty: 60 0RF levothyroxine 112 mcg tablet 112 mcg PO DAILY Qty: 90 0RF Follow-up/Referrals: PHYSICIAN,BROOM BUNDLER [Primary Care Provider] - Time of Disposition: 18:41
[2024-05-22 18:25] VITALS: BP 146/89; PULSE 82; RESP 16; TEMP 36.6; O2SAT 100
[2024-05-22 18:33] LABS: EDUAAPPEAR Cloudy; EDUABILI Negative (Negative); EDUABLOOD 1+ (Negative); EDUACOLOR1 Yellow; EDUAGLUCOSE Negative (Negative); EDUAKETONE Negative (Negative); EDUALEUKO 2+ (Negative); EDUANITRATE Positive (Negative); EDUAPROTEIN Negative (Negative); EDUASPGRAVITY 1.015; EDUAUROBILI 0.2
== END 2024-05-22 18:43 | disposition home or self-care (01) ==
PROVIDERS: Emergency Provider Nurse Practitioner
DX: N30.01 Acute cystitis with hematuria (principal); Z87.891 Personal history of nicotine dependence; I10 Essential (primary) hypertension; K21.9 Gastro-esophageal reflux disease without esophagitis; I25.10 Atherosclerotic heart disease of native coronary artery without angina pectoris; Z95.5 Presence of coronary angioplasty implant and graft; E03.9 Hypothyroidism, unspecified; E78.5 Hyperlipidemia, unspecified; M17.0 Bilateral primary osteoarthritis of knee; M19.011 Primary osteoarthritis, right shoulder; M06.09 Rheumatoid arthritis without rheumatoid factor, multiple sites; Z96.652 Presence of left artificial knee joint; Z79.82 Long term (current) use of aspirin
CPT/HCPCS: 81003; 87086; 99213; G0463

== ENCOUNTER 2024-10-01 15:03 | Emergency (ER) | payer MEDICARE, SELFPAY ==
--- NOTE | 2024-10-01 15:14 | ED_ITS ---
HPI - Neck Pain/Injury General Chief Complaint: Neck Pain/Injury Stated Complaint: neck pain for 4 days Time Seen by Provider: 10/01/24 15:12 Related Data Home Medications ?Medication ?Instructions ?Recorded ?Confirmed ?Last Taken ?Type aspirin 81 mg tablet,delayed 81 mg PO HS 03/28/19 08/11/24 10/10/23 History release (Adult Low Dose Aspirin) atorvastatin 80 mg tablet 80 mg PO DAILY 03/28/19 08/11/24 10/11/23 History cholecalciferol (vitamin D3) 25 50 unit PO DAILY 12/04/21 08/11/24 10/11/23 History mcg (1,000 unit) capsule estradiol 0.01% (0.1 mg/gram) See Rx Instructions .Route .COMPLEX 01/11/22 08/11/24 10/11/23 History vaginal cream ezetimibe 10 mg tablet 10 mg PO HS 07/14/22 08/11/24 10/11/23 History metoprolol succinate 25 mg mg PO 05/22/24 08/11/24 Unknown History tablet,extended release 24 hr Allergies Allergy/AdvReac Type Severity Reaction Status Date / Time Penicillins Allergy Mild Hives Verified 10/01/24 15:13 morphine AdvReac Severe Vomiting Verified 10/01/24 15:13 [facility] Past Medical History Medical History (Updated 08/11/24 @ 09:50 by Andreina Michael [facility]) Patient new to facility Trochanteric bursitis, right hip Schatzki's ring Hx of gastric ulcer Dysphagia 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 Morrow S/P left rotator cuff repair 07/27/2016 [place] S/P right rotator cuff repair 07/03/[address] Morrow History of hernia repair 06/25/2003, 07/27/[address] Vega Hx of colonoscopy 09/21/2002, 04/23/2014, 08/21/2020 History of (3) 1979, 1984, 1986 History of tonsillectomy S/P angioplasty with stent 07/04/1999 History of hysterectomy 08/12/[address] Alvarado Olmstead Family History Family History Father Family history of cardiovascular disease Mother Family history of cardiovascular disease Sibling Family history of cardiovascular disease Family history of malignant neoplasm Heart disease Hypertension Thyroid disorder Other Cerebrovascular accident Diabetes mellitus Family history of alcoholism Family history of arthritis Family history of gout Hyperlipidemia Neuropathy Social History Social History Smoking packs per day: 2 Smoking cigarettes per day: 40.0 Years smoked: 20 Smoking pack-years: 40.00 Smoking status: Former smoker Tobacco type: cigarettes Second hand tobacco smoke exposure: No Smoking end date: 02/22/99 Additional smoking assessment comments: PT DENIES ALL FORMS OF TOBACCO USE Alcohol intake: current Drinks per week: 5 Alcohol use details: seldom Substance use: current Substance use type: marijuana Other substance usage details: STATES OCCASIONAL GUMMY @ HS - LAST USED COUPLE MONTHS AGO Last use: tried gummies and rub for pain last year Lack of Transportation: No Lack of Food: Never True Current Housing: I Have Housing Concerned About Future Housing: No Difficulty Paying Gas/Electric Bills: No Difficulty Paying for Meds: No Currently Unemployed: No Education: Decline to Answer Difficulty w/ Childcare or Family Care: No Living arrangements: alone Gender identity (if verbalized by the patient): Female Spiritual care concerns: No Discharge Plan Discharge Patient Language: Bengali Prescriptions: No Action estradiol 0.01 % (0.1 mg/gram) cream See Rx Instructions .ROUTE .COMPLEX Rx Instructions: use as directed metoprolol succinate 25 mg tablet extended release 24 hr PO atorvastatin 80 mg tablet 80 mg PO DAILY aspirin [Adult Low Dose Aspirin] 81 mg tablet,delayed release (DR/EC) 81 mg PO HS cholecalciferol (vitamin D3) 25 mcg (1,000 unit) capsule 50 unit PO DAILY Patient Comments: 2,000IU daily hydroxychloroquine [Plaquenil] 200 mg tablet 400 mg PO DAILY Qty: 180 4RF cefdinir 300 mg capsule 300 mg PO Q12H 7 Days Qty: 14 0RF Gemtesa 75 mg tablet 75 mg PO DAILY Qty: 30 0RF ezetimibe 10 mg tablet 10 mg PO HS lisinopril 20 mg tablet See Rx Instructions .ROUTE .COMPLEX Qty: 90 3RF Dose Instruction: Take 1 tablet by mouth once daily Rx Instructions: Take 1 tablet by mouth once daily levothyroxine 112 mcg tablet 112 mcg PO DAILY Qty: 90 0RF cyclobenzaprine 10 mg tablet 10 mg PO .hs PRN (Reason: muscle spasm) Qty: 90 0RF omeprazole 40 mg capsule,delayed release(DR/EC) 40 mg PO BID Qty: 180 3RF tramadol 50 mg tablet 50 mg PO BID PRN (Reason: pain) Qty: 60 0RF gabapentin 300 mg capsule 300 mg PO DAILY Qty: 90 0RF Follow-up/Referrals: Elton Rooney MD [Primary Care Provider] -
[2024-10-01 15:35] VITALS: BP 118/82; PULSE 87; RESP 16; TEMP 36.3; O2SAT 98
--- NOTE | 2024-10-01 15:42 | ED.EAR ---
HPI - Ear Problem General Chief complaint: Neck Pain/Injury Stated complaint: neck pain for 4 days Time Seen by Provider: 10/01/24 15:12 Source: patient Mode of arrival: ambulatory Limitations: no limitations History of Present Illness HPI Narrative: Patient is a 68-year-old female who presents with left-sided ear pain for 4 days. Denies any hearing loss, fever, chills, nausea, vomiting, diarrhea. Has also had some sinus congestion and sinus pressure. Patient has taken ibuprofen and Tylenol intermittently along with some [id number] sinus medicine. MD Complaint: ear pain Related Data Home Medications ?Medication ?Instructions ?Recorded ?Confirmed ?Last Taken ?Type aspirin 81 mg tablet,delayed 81 mg PO HS 03/28/19 10/01/24 10/10/23 History release (Adult Low Dose Aspirin) atorvastatin 80 mg tablet 80 mg PO DAILY 03/28/19 10/01/24 10/11/23 History cholecalciferol (vitamin D3) 25 50 unit PO DAILY 12/04/21 10/01/24 10/11/23 History mcg (1,000 unit) capsule estradiol 0.01% (0.1 mg/gram) See Rx Instructions .Route .COMPLEX 01/11/22 10/01/24 10/11/23 History vaginal cream ezetimibe 10 mg tablet 10 mg PO HS 07/14/22 10/01/24 10/11/23 History metoprolol succinate 25 mg mg PO 05/22/24 08/11/24 Unknown History tablet,extended release 24 hr oxybutynin chloride 10 mg mg PO 10/01/24 Unknown History tablet,extended release 24 hr Allergies Allergy/AdvReac Type Severity Reaction Status Date / Time Penicillins Allergy Mild Hives Verified 10/01/24 15:13 morphine AdvReac Severe Vomiting Verified 10/01/24 15:13 Review of Systems Review of Systems: All systems reviewed & are unremarkable except as noted in HPI and below Constitutional: Constitutional: Denies body ache(s), Denies chills, Denies fever(s), Denies headache(s) and Denies malaise Eyes: Eyes: Denies blurry vision, Denies eye discharge and Denies irritation ENT: Reports otalgia, Denies headache(s), Denies nasal congestion, Denies nasal discharge and Denies sore throat Cardiovascular: Cardiovascular: Denies chest pain, Denies edema, Denies palpitations and Denies dyspnea on exertion Respiratory: Respiratory: Denies cough and Denies dyspnea on exertion Gastrointestinal: Gastrointestinal: Denies abdominal pain, Denies diarrhea, Denies nausea and Denies vomiting Musculoskeletal: Musculoskeletal: Denies back pain, Denies arthralgias and Denies muscle weakness Integumentary/Breasts: Skin/Breast: Denies pruritus and Denies rash Neurologic: Denies headache(s) Psychiatric: Psychiatric: Reports no additional psychiatric complaints Endocrine: Endocrine: Denies palpitations PMFSH Past Medical History Medical History Patient new to facility Trochanteric bursitis, right hip Schatzki's ring Hx of gastric ulcer Dysphagia 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 Morrow S/P left rotator cuff repair 07/27/2016 [place] S/P right rotator cuff repair 07/03/[address] Morrow History of hernia repair 06/25/2003, 07/27/[address] Vega Hx of colonoscopy 09/21/2002, 04/23/2014, 08/21/2020 History of (3) 1979, 1984, 1986 History of tonsillectomy S/P angioplasty with stent 07/04/1999 History of hysterectomy 08/12/[address] Alvarado Olmstead Family History Family History Father Family history of cardiovascular disease Mother Family history of cardiovascular disease Sibling Family history of cardiovascular disease Family history of malignant neoplasm Heart disease Hypertension Thyroid disorder Other Cerebrovascular accident Diabetes mellitus Family history of alcoholism Family history of arthritis Family history of gout Hyperlipidemia Neuropathy Social History Social History Smoking packs per day: 2 Smoking cigarettes per day: 40.0 Years smoked: 20 Smoking pack-years: 40.00 Smoking status: Former smoker Tobacco type: cigarettes Second hand tobacco smoke exposure: No Smoking end date: 02/22/99 Additional smoking assessment comments: PT DENIES ALL FORMS OF TOBACCO USE Alcohol intake: current Drinks per week: 5 Alcohol use details: seldom Substance use: current Substance use type: marijuana Other substance usage details: STATES OCCASIONAL GUMMY @ HS - LAST USED COUPLE MONTHS AGO Last use: tried gummies and rub for pain last year Lack of Transportation: No Lack of Food: Never True Current Housing: I Have Housing Concerned About Future Housing: No Difficulty Paying Gas/Electric Bills: No Difficulty Paying for Meds: No Currently Unemployed: No Education: Decline to Answer Difficulty w/ Childcare or Family Care: No Living arrangements: alone Gender identity (if verbalized by the patient): Female Spiritual care concerns: No Comments At time of signature, agree with nursing past medical, surgical, social and family history. There is no relevant family history pertinent to the presenting complaint? Exam Const: General: cooperative, healthy appearing, no acute distress and well nourished Nutritional Appearance: well nourished Orientation/consciousness: patient oriented x3 Limitations: no limitations HENMT: Head: normal to inspection, normocephalic and atraumatic Ears: hearing grossly normal bilaterally, EAC's normal, mastoids normal bilaterally not edematous, nontender and no erythema, no periauricular adenopathy and TM abnormal wth effusion serous on the left Face/Nose/Sinus: Normal external nose present, Normal nares present, Normal nasal mucous membranes and turbinates present, No nasal discharge present, normal facial exam and sinuses nontender Face and sinus: normal facial exam and sinuses nontender Mouth: Yes Normal oral and palatal mucosa present, Yes lip normal, Yes tongue normal and Yes moist mucous membranes Throat: posterior oropharynx normal, tonsils normal and uvula midline Eyes: General: appearance normal, both eyes and all related structures Alignment and Position: alignment normal and position normal Eyelids: eyelids normal Pupils: Equal, round and reactive pupils present EOM: EOMs intact bilaterally Neck: Neck: normal visual inspection, full ROM, no lymphadenopathy and supple Chest: Chest palpation & inspection: normal inspection of the chest Resp: Effort & Inspection: normal respiratory effort and able to speak in complete sentences Auscultation: clear to auscultation bilaterally, no crackles, no rales, no rhonchi and no wheezes Cardio: Rate: regular rate Rhythm: regular rhythm Heart sounds: S1 normal heart sound present and S2 normal heart sound present Skin: General skin exam: normal color and no rashes or lesions noted Neuro: General: patient oriented x3 and moves all extremities Cranial nerves: Yes Equal, round and reactive pupils present Cognition (Neuro): normal cognition Speech: normal speech Gait exam (Neuro): Normal gait present Extrem: General: normal to inspection and full ROM Psych: Appearance: grossly normal and well kempt Mental Status: mental status grossly normal Speech and movement: Normal speech and movement present Course Course Emergency Course: Patient is aware of diagnosis, understands and agrees to treatment plan.? Anticipatory guidance given.? Patient agrees to follow-up as directed and is aware of reasons to seek care at the emergency department.? Portions of this record may have been created with voice recognition software? Level of Care: Express Care Visit Vital Signs Vital signs: Vital Signs Temperature 36.3 C L 10/01/24 15:35 Pulse Rate 87 10/01/24 15:35 Respiratory Rate 16 10/01/24 15:35 Blood Pressure 118/82 10/01/24 15:35 Pulse Oximetry 98 10/01/24 15:35 Temperature 36.3 C L 10/01/24 15:35 Pulse Rate 87 10/01/24 15:35 Respiratory Rate 16 10/01/24 15:35 Blood Pressure 118/82 10/01/24 15:35 Pulse Oximetry 98 10/01/24 15:35 Reviewed Medical Decision Making MDM Narrative Medical decision making narrative: No signs of mastoiditis at this time. Patient states she did recently go to the dentist but it was just for impressions and had no work or cleanings done. Pt well hydrated appearing, in no respiratory distress, hemodynamically stable. Recommend supportive care. The patient is stable at time of discharge the clinical impression was discussed and the patient was given the opportunity to ask questions, which were addressed as completely as possible given the information available at present. Anticipatory guidance and return to care precautions were discussed and the importance of primary care follow-up was stressed and encouraged. The patient voiced understanding of the plan, indications to return, and the need for follow-up. Exam findings show no acute concerns or changes Patient is appropriate for outpatient treatment and follow-up. Differential diagnosis considered: otitis media, otitis externa, otitis effusion, foreign body, cerumen impaction, viral syndrome Medical Records Medical records reviewed: Yes I reviewed the external patient's medical records. Vital Signs Vital Signs: Vital Signs Temperature 36.3 C L 10/01/24 15:35 Pulse Rate 87 10/01/24 15:35 Respiratory Rate 16 10/01/24 15:35 Blood Pressure 118/82 10/01/24 15:35 Pulse Oximetry 98 10/01/24 15:35 Temperature 36.3 C L 10/01/24 15:35 Pulse Rate 87 10/01/24 15:35 Respiratory Rate 16 10/01/24 15:35 Blood Pressure 118/82 10/01/24 15:35 Pulse Oximetry 98 10/01/24 15:35 Discharge Plan Discharge Clinical Impression: Acute effusion of left ear Patient Disposition: Home Condition: Stable Instructions: Fluid In The Ear (Serous Otitis Media) (ED) Additional Instructions: Recommend antihistamine such as Benadryl at night time and Zyrtec or Aria during the day until symptoms improve Flonase nasal spray, 1 spray in each nostril once daily until symptoms improve Also, recommend symptomatic treatment includes: rest, fluids, and increase humidity of the air at home. Recommend Acetaminophen as directed on the bottle to reduce fever, pain Please schedule a follow-up visit with your personal physician for further evaluation and treatment within 3-5days. If your symptoms persist, change or worsen significantly before you can contact your personal physician then please, without delay, go to the emergency department for further evaluation. Patient Language: Azeri Prescriptions: New fluticasone propionate [Flonase Allergy Relief] 50 mcg/actuation spray,suspension 1 spray intranasal DAILY Qty: 16 0RF Rx Instructions: administer into each nostril No Action estradiol 0.01 % (0.1 mg/gram) cream See Rx Instructions .ROUTE .COMPLEX Rx Instructions: use as directed metoprolol succinate 25 mg tablet extended release 24 hr PO oxybutynin chloride 10 mg tablet extended release 24hr PO atorvastatin 80 mg tablet 80 mg PO DAILY aspirin [Adult Low Dose Aspirin] 81 mg tablet,delayed release (DR/EC) 81 mg PO HS cholecalciferol (vitamin D3) 25 mcg (1,000 unit) capsule 50 unit PO DAILY Patient Comments: 2,000IU daily hydroxychloroquine [Plaquenil] 200 mg tablet 400 mg PO DAILY Qty: 180 4RF Gemtesa 75 mg tablet 75 mg PO DAILY Qty: 30 0RF ezetimibe 10 mg tablet 10 mg PO HS lisinopril 20 mg tablet See Rx Instructions .ROUTE .COMPLEX Qty: 90 3RF Dose Instruction: Take 1 tablet by mouth once daily Rx Instructions: Take 1 tablet by mouth once daily levothyroxine 112 mcg tablet 112 mcg PO DAILY Qty: 90 0RF cyclobenzaprine 10 mg tablet 10 mg PO .hs PRN (Reason: muscle spasm) Qty: 90 0RF omeprazole 40 mg capsule,delayed release(DR/EC) 40 mg PO BID Qty: 180 3RF tramadol 50 mg tablet 50 mg PO BID PRN (Reason: pain) Qty: 60 0RF gabapentin 300 mg capsule 300 mg PO DAILY Qty: 90 0RF Follow-up/Referrals: Elton Rooney MD [Primary Care Provider] - 3 Days Time of Disposition: 15:47
== END 2024-10-01 15:50 | disposition home or self-care (01) ==
PROVIDERS: Emergency Provider Nurse Practitioner Family; PCP Family Medicine
DX: H65.02 Acute serous otitis media, left ear (principal); M17.0 Bilateral primary osteoarthritis of knee; I10 Essential (primary) hypertension; I25.10 Atherosclerotic heart disease of native coronary artery without angina pectoris; Z95.5 Presence of coronary angioplasty implant and graft; K21.9 Gastro-esophageal reflux disease without esophagitis; M06.09 Rheumatoid arthritis without rheumatoid factor, multiple sites; E03.9 Hypothyroidism, unspecified; E78.5 Hyperlipidemia, unspecified; M19.011 Primary osteoarthritis, right shoulder; Z96.652 Presence of left artificial knee joint; Z79.82 Long term (current) use of aspirin
CPT/HCPCS: 99213; G0463

== ENCOUNTER 2024-10-17 18:50 | Emergency (ER) | payer MEDICARE, SELFPAY ==
[2024-10-17 19:04] VITALS: BP 136/70; PULSE 81; RESP 16; TEMP 36.2; O2SAT 99
--- NOTE | 2024-10-17 19:07 | ED_ITS ---
HPI - Skin/Abscess/Foreign Bdy General Chief complaint: Skin/Abscess/Foreign Body Stated complaint: Neck Pain Time Seen by Provider: 10/17/24 19:05 Source: patient Mode of arrival: ambulatory Limitations: no limitations History of Present Illness HPI narrative: Lizeth is a 68-year-old female patient presenting to the clinic today with complaints of possible shingles to her neck. She reports over the past few days she has had some excruciating pain to her neck. Has been taking her hydrocodone and tramadol pain medications without much relief. States she noticed a rash on her neck today and thinks it may be shingles. Has a history of getting shingles frequently. Denies any fevers, chills, body aches. Related Data Home Medications ?Medication ?Instructions ?Recorded ?Confirmed ?Last Taken ?Type aspirin 81 mg tablet,delayed 81 mg PO HS 03/28/1909/2210/10/23 History release (Adult Low Dose Aspirin) atorvastatin 80 mg tablet 80 mg PO DAILY 03/28/1909/2210/11/23 History cholecalciferol (vitamin D3) 25 50 unit PO DAILY 12/0410/03/24 10/11/23 History mcg (1,000 unit) capsule estradiol 0.01% (0.1 mg/gram) See Rx Instructions .Rou te .COMPLEX 01/11/22 10/03/24 10/11/23 History vaginal cream ezetimibe 10 mg tablet 10 mg PO HS 07/14/22 5 10/11/23 History metoprolol succinate 25 mg mg PO 05/22/24 10/03/24 Unk nown History tablet,extended release 24 hr oxybutynin chloride 10 mg mg PO 10/01/24 10/03/24 Unkn own History tablet,extended release 24 hr Allergies Allergy/AdvReac Type Severity Reaction Status Date / Time Penicillins Allergy Mild Hives Verified 10/03/24 10:20 morphine AdvReac Severe Vomiting Verified 10/03/24 10:20 FOR[facility], [facility] Past Medical History Medical History Patient new to facility Trochanteric bursitis, right hip Schatzki's ring Hx of gastric ulcer Dysphagia 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 Morrow S/P left rotator cuff repair 07/27/2016 [place] S/P right rotator cuff repair 07/03/[address] Morrow History of hernia repair 06/25/2003, 07/27/[address] Vega Hx of colonoscopy 09/21/2002, 04/23/2014, 08/21/2020 History of (3) 1979, 1984, 1986 History of tonsillectomy S/P angioplasty with stent 07/04/1999 History of hysterectomy 08/12/[address] Alvarado [place] Family History Family History Father Family history of cardiovascular disease Mother Family history of cardiovascular disease Sibling Family history of cardiovascular disease Family history of malignant neoplasm Heart disease Hypertension Thyroid disorder Other Cerebrovascular accident Diabetes mellitus Family history of alcoholism Family history of arthritis Family history of gout Hyperlipidemia Neuropathy Social History Social History Smoking packs per day: 2 Smoking cigarettes per day: 40.0 Years smoked: 20 Smoking pack-years: 40.00 Smoking status: Former smoker Tobacco type: cigarettes Second hand tobacco smoke exposure: No Smoking end date: 02/22/99 Additional smoking assessment comments: PT DENIES ALL FORMS OF TOBACCO USE Alcohol intake: current Drinks per week: 5 Alcohol use details: seldom Substance use: current Substance use type: marijuana Other substance usage details: STATES OCCASIONAL GUMMY @ HS - LAST USED COUPLE MONTHS AGO Last use: tried gummies and rub for pain last year Lack of Transportation: No Lack of Food: Never True Current Housing: I Have Housing Concerned About Future Housing: No Difficulty Paying Gas/Electric Bills: No Difficulty Paying for Meds: No Currently Unemployed: No Education: Decline to Answer Difficulty w/ Childcare or Family Care: No Living arrangements: alone Gender identity (if verbalized by the patient): Female Spiritual care concerns: No Comments At the time of my signature, I reviewed and agree with the nursing past medical, surgical, social, and family history. There is no relevant family history pertinent to the patient complaint. Exam Narrative: General: Well-developed, well nourished, in no apparent distress Head: Normocephalic, atraumatic. Cardio: Regular rate and rhythm, s1 and s2 normal, no murmur appreciated. Resp: Clear to auscultation bilaterally, no rhonchi, rales, wheezing or rubs. Integumentary: [place], warm, and dry, linear erythematous base rash with fascicular lesions clustered, tender to palpation Course Course Emergency Course: Portions of this record may have been created with voice recognition software. Level of Care: Express Care Visit Vital Signs Vital signs: Vital Signs Temperature 36.2 C L 10/17/24 19:04 Pulse Rate 81 10/17/24 19:04 Respiratory Rate 16 10/17/24 19:04 Blood Pressure 136/70 10/17/24 19:04 Pulse Oximetry 99 10/17/24 19:04 Temperature 36.2 C L 10/17/24 19:04 Pulse Rate 81 10/17/24 19:04 Respiratory Rate 16 10/17/24 19:04 Blood Pressure 136/70 10/17/24 19:04 Pulse Oximetry 99 10/17/24 19:04 Vital signs reviewed MDM - Skin/Abscess/Foreign Bdy MDM Narrative Medical decision making narrative: At the time of visit patient is resting comfortably on the exam table. Patient appears to be nontoxic. Complaints of possible shingles to her neck. She reports over the past few days she has had some excruciating pain to her neck. Has been taking her hydrocodone and tramadol pain medications without much relief. States she noticed a rash on her neck today and thinks it may be shingles. Has a history of getting shingles frequently. Denies any fevers, chills, body aches. On exam patient has a red, raised, vesicular rash with a erythematous base, tender to palpation Plan: I suspect patient has herpes zoster to the posterior neck. Prescription for Valtrex was sent to the pharmacy Supportive measures were discussed with the patient and they voiced understanding discharge instructions and agrees to treatment plan. Return precautions reviewed Differential Diagnosis Differential diagnosis: Likely abscess of skin or subcutaneous tissue, viral exanthem, dermatophytosis, urticaria, herpes zoster, allergic reaction to drug, cellulitis, eczema, insect bites, impetigo and contact dermatitis Discharge Plan Discharge Clinical Impression: Herpes zoster Patient Disposition: Home Condition: Stable Instructions: Antibiotic Form, Shingles (ED) Additional Instructions: Take Valtrex as prescribed May apply lidocaine patch to the affected area Continue current medications as prescribed Keep area covered if open or draining. If it is scabbed over or dried out it is no longer contagious Stay away from person's, immunocompromised persons, or children would not had the chickenpox vaccine Follow-up with your PCP in 3-5 days if symptoms persist Patient Language: Lithuanian Prescriptions: New valacyclovir 1 gram tablet 1,000 mg PO Q8H 7 Days Qty: 21 0RF No Action estradiol 0.01 % (0.1 mg/gram) cream See Rx Instructions .ROUTE .COMPLEX Rx Instructions: use as directed metoprolol succinate 25 mg tablet extended release 24 hr PO oxybutynin chloride 10 mg tablet extended release 24hr PO fluticasone propionate [Flonase Allergy Relief] 50 mcg/actuation spray,suspension 1 spray intranasal DAILY Qty: 16 0RF Rx Instructions: administer into each nostril atorvastatin 80 mg tablet 80 mg PO DAILY aspirin [Adult Low Dose Aspirin] 81 mg tablet,delayed release (DR/EC) 81 mg PO HS methylprednisolone [Medrol (Prince)] 4 mg tablets,dose pack See Rx Instructions PO PER PKG DIR Qty: 21 0RF Rx Instructions: PO PER PKG DIR for 6 days cholecalciferol (vitamin D3) 25 mcg (1,000 unit) capsule 50 unit PO DAILY Patient Comments: 2,000IU daily hydroxychloroquine [Plaquenil] 200 mg tablet 400 mg PO DAILY Qty: 180 4RF ezetimibe 10 mg tablet 10 mg PO HS lisinopril 20 mg tablet See Rx Instructions .ROUTE .COMPLEX Qty: 90 3RF Dose Instruction: Take 1 tablet by mouth once daily Rx Instructions: Take 1 tablet by mouth once daily cyclobenzaprine 10 mg tablet 10 mg PO .hs PRN (Reason: muscle spasm) Qty: 90 0RF omeprazole 40 mg capsule,delayed release(DR/EC) 40 mg PO BID Qty: 180 3RF tramadol 50 mg tablet 50 mg PO BID PRN (Reason: pain) Qty: 60 0RF gabapentin 300 mg capsule 300 mg PO DAILY Qty: 90 0RF levothyroxine 112 mcg tablet 112 mcg PO DAILY Qty: 90 0RF Follow-up/Referrals: Andreina Michael FNP [Primary Care Provider, [facility]] Time of Disposition: 19:08 Quality NIHSS Nursing Documentation ED NIHSS nursing documentation: reviewed/agree
== END 2024-10-17 19:11 | disposition home or self-care (01) ==
PROVIDERS: Emergency Provider Nurse Practitioner Family; PCP Nurse Practitioner Family
DX: B02.9 Zoster without complications (principal); I10 Essential (primary) hypertension; I25.10 Atherosclerotic heart disease of native coronary artery without angina pectoris; Z95.5 Presence of coronary angioplasty implant and graft; E03.9 Hypothyroidism, unspecified; E78.5 Hyperlipidemia, unspecified; K21.9 Gastro-esophageal reflux disease without esophagitis; M17.0 Bilateral primary osteoarthritis of knee; Z87.891 Personal history of nicotine dependence; Z96.652 Presence of left artificial knee joint
CPT/HCPCS: 99213; G0463

== ENCOUNTER 2025-02-20 15:47 | Outpatient (CLI) | payer MEDICARE, SELFPAY ==
--- NOTE | ~2025-02-20 | MM_ITS ---
EXAMINATION: MM screening [facility] BI w kenneth HISTORY: Z12.39 - Encounter for other screening for malignant neop... TECHNIQUE: Craniocaudal and mediolateral oblique 3-D tomosynthesis images were obtained and synthetic 2-D images were generated. CAD analysis was submitted and interpreted. COMPARISON: 2022, 2020, and 2018. BREAST PARENCHYMAL COMPOSITION: The breast tissue is almost entirely composed of fat. FINDINGS: No suspicious masses are seen. There are no suspicious calcifications. No unexplained architectural distortion is seen. There are no skin or nipple abnormalities identified. There is no adenopathy seen on the images submitted. IMPRESSION: No mammographic evidence to suggest malignancy is seen. The patient may return to screening mammography as per ACR guidelines. BI-RADS 1 - Negative. Reviewed, dictated and finalized at location C. [facility]
--- OUTSIDE RECORDS SUMMARY | 2025-02-20 15:50 | XMS_ITS | Encounter Summary ---
Author Organization [facility] Address [address] [place] [address] Phone Care Team Providers Care [employer] Supervisor Name Role Phone Edgar De Luna Sunita HERNANDEZ Primary Care Provider [phone] Reason for Visit * Reason Comments Medication Refill Encounter Details Date Type Department Care Team (Late st Contact Info) Description 01/09/2022 Refill [facility] - Gastroenterology [facility] [address] [place] [address] Yareli Vera [place], PAC [address] [place], [place] [id number] Medication Refill Social History Tobacco Use Types Packs/Day Years Used Date Smoking Tobacco: Former Cigarettes 2 20 1 980 - 2000 Smokeless Tobacco: Never Alcohol Use Standard Drinks/Week Comments Yes 0 (1 standard drink = 0.6 oz pur e alcohol) rare Sexually Active Control Partners Comments Not Currently Comments No Sex and Gender Information Value Date Recorded Sex Assigned at Not on file Legal Sex Female 7:42 PM CDT Gender Identity Not on file Sexual Orientation Not on file 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
--- OUTSIDE RECORDS SUMMARY | 2025-02-20 15:50 | XMS_ITS | Encounter Summary ---
Author Organization [facility] Address [address] [place] [address] Phone Care Team Providers Care Cardiac Rehab Nurse Name Role Phone Edgar De Luna Sunita HERNANDEZ Primary Care Provider [phone] Reason for Visit * Reason Comments Medication Refill Encounter Details Date Type Department Care Team (Late st Contact Info) Description 01/05/2022 Refill [facility] - Gastroenterology 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
--- OUTSIDE RECORDS SUMMARY | 2025-02-20 15:50 | XMS_ITS | Encounter Summary ---
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
--- OUTSIDE RECORDS SUMMARY | 2025-02-20 15:50 | XMS_ITS | Encounter Summary ---
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 * Telephone Encounter - Yareli Vera PAC - 10/02/2021 2:17 PM CDT I approved this for 90 days even though it has been more than a year since she has been seen. She is to get this from her primary care provider from now on. * Telephone Encounter - Leilani Adams RN - 10/02/2021 1:33 PM CDT Pharmacy requesting refill of: Requested Prescriptions Pending Prescriptions Disp Refills ??? omeprazole (PriLOSEC) 40 MG CAPSULE DELAYED RELEASE [Pharmacy Med Name: Omeprazole 40 MG Oral Capsule Delayed Release] 90 Capsule 0 Sig: TAKE 1 CAPSULE BY MOUTH ONCE DAILY 30-60 MINUTES BEFORE LARGEST MEAL Last fill: Patients last OV with GI: 07/23/2020 Next Office Visit with GI: None scheduled. Per chart review, per referral noted on 07/23/2020, patient reported insurance will not cover EGD and only wanted to proceed with colonoscopy. Omeprazole order pended, please review. documented in this encounter Plan of Treatment Not on file documented as of this encounter Visit Diagnoses Not on filedocumented in this encounter Care Teams Head Of Transport Logistics Relationship Specialty Start Date End Date Edgar De Luna DO [address] [facility] [address] [place] [address] PCP - General Internal Medicine 06/14/20 documented as of this encounter
--- OUTSIDE RECORDS SUMMARY | 2025-02-20 15:50 | XMS_ITS | Clinical Summary ---
Author Organization [facility] [address] Address [address] [place] [address] Care Team Providers Care Kettle Tender Name Role Phone Toni Rodarte MD Unavailable Elton Rooney MD Primary Care Provider [phone] Allergies Active Allergy Reactions Criticality Noted Date Comments Penicillins Hives Medium Medications aspirin 81 mg tablet take 1 tablet by oral route every day 0 0 4 Active traMADol (CONZIP) 100 mg capsule take 1 capsule by oral route every day 0 0 4 Active cyclobenzaprine (FLEXERIL) 10 mg tablet Take 10 mg by mouth nightly as needed for muscle spasms Active multivitamin capsule Take 1 capsule by mouth daily Active cholecalciferol (VITAMIN D-3) 5,000 unit capsule Take 1 capsule (5,000 Units total) by mouth daily Active lisinopriL (PRINIVIL,ZESTR IL) 20 mg tablet Take 1 tablet by mouth once daily 90 tablet 2 Active oxybutynin XL (DITROPAN-XL) 10 mg 24 hr tablet Take 1 tablet (10 mg total) by mouth daily 2 Active traZODone (DESYREL) 100 mg tablet Take 1 tablet (100 mg total) by mouth nightly at bedtime. 2 Active levothyroxine (SYNTHROID) 125 mcg tablet Take 1 tablet (125 mcg total) by mouth daily 3 Active omeprazole (PriLOSEC) 40 mg capsule Take 1 capsule (40 mg total) by mouth daily 3 Active gabapentin (NEURONTIN) 300 mg capsule TAKE 1 CAPSULE BY MOUTH THREE TIMES DAILY NEEDED FOR PAIN 3 Active estradioL (ESTRACE) 0.01 % (0.1 mg/gram) vaginal cream APPLY 1/2 (ONE-HALF) GRAM VAGINALLY THREE TIMES A WEEK 3 Active hydroxychloroqu ine (PLAQUENIL) 200 mg tablet Take 2 tablets (400 mg total) by mouth daily 4 Active metoprolol XL (TOPROL-XL) 25 mg extended release tablet Take 1 tablet by mouth once daily 90 tablet 3 5 Active atorvastatin (LIPITOR) 80 mg tablet Take 1 tablet by mouth once daily 90 tablet 2 5 Active ezetimibe (ZETIA) 10 mg tablet Take 1 tablet by mouth once daily 90 tablet 3 5 Active Active Problems Problem Noted Date Diagnosed Date Atherosclerosis of coronary artery 12/22/2013 Overview (05/29/2016): Coronary atherosclerosis Surgical History Surgery Date Site/Laterality Comments HYSTERECTOMY Hysterectomy ROTATOR CUFF REPAIR Rotator cuff repair OTHER SURGICAL HISTORY carpal tunnel release surgery Medical History Medical History Date Comments Chronic coronary artery disease Coronary Artery Disease Hx Other Medical dyslipidemia Hypothyroidism Hypothyroidism Family History Medical History Relation Name Comments Coronary artery disease Brother 1 1 Opal nary Artery Bypass Graft; Coronary artery disease Brother 2 2 Opal nary Artery Bypass Graft; Heart attack Father Myocardial Infa rction; Heart attack Mother Myocardial Infa rction; Coronary artery disease Other 2 Opal nary Artery Disease; Relation Name Status Comments Brother 1 1 Alive Brother 2 2 Alive Father Alive Mother Alive Other 1 Alive Other 2 Social History Tobacco Use Types Packs/Day Years Used Date Smoking Tobacco: Former Cigarettes Q uit: 11/05/1999 Smokeless Tobacco: Never Tobacco Cessation:Counseling Given: Not Answered Alcohol Use Standard Drinks/Week Comments Yes 2 (1 standard drink = 0.6 oz pur e alcohol) rarely Comments Unknown Sex and Gender Information Value Date Recorded Sex Assigned at Not on file 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 [employer] Gender Identity Not on file Sexual Orientation Not on file Last Filed Vital Signs Vital Sign Reading Time Taken Comments Blood Pressure 112/78 07/19/2024 9:50 AM CDT Pulse 70 07/19/2024 9:50 AM CDT Temperature - - Respiratory Rate 18 07/19/2024 9:50 AM CDT Oxygen Saturation 94% 07/19/2024 9:50 AM CDT Inhaled Oxygen Concentration - - Weight 83 kg (183 lb) 07/19/2024 9:50 AM CDT Height 167.6 cm (5' 6) 07/19/2024 9:50 AM CDT Body Mass Index 29.54 07/19/2024 9:50 AM CDT Plan of Treatment Health Maintenance Due Date Last Done Comments Breast Cancer Screening-Mammogram 1955 Colon Cancer Screening-Colonoscopy 1955 Depression Screening 1956 Fall Risk Assessment 1955 Hepatitis C Screening 1955 Osteoporosis Screening-Bone Density Scan 1956 DTaP/Tdap/Td Vaccine (1 - Tdap) 12/24/1967 Hepatitis B Screening 1974 Pneumococcal vaccine 65+ (1 of 2 - PCV) 12/24/1975 Covid-19 Vaccine (3 - Pfizer risk series) 06/11/2020 05/14/2020, 04/23/2020 Well Visit 65+ 2021 Influenza Vaccine (#1) 2024 0, 10/23/2018, 10/26/2017, Additional history exists Zoster Vaccine Completed 01/19/2018, 11/05/2017 Insurance [facility] Care Teams Kettle Tender Relationship Specialty Start Date End Date Elton Rooney MD [address] [place] [address] PCP - General Family Medicine 07/19/24 Toni Rodarte MD [address] [address] Referring Physician Orthopedic Surgery 05/05/22
--- OUTSIDE RECORDS SUMMARY | 2025-02-20 15:51 | XMS_ITS | Clinical Summary ---
Author Organization [facility] Address [address] [facility] [address] [place] [address] Phone Care Team Providers Care Electrotype Molder Name Role Phone Edgar De Luna Primary Care Provider Allergies Active Allergy Reactions Criticality Noted Date Comments Morphine Nausea 12/04/2016 Penicillins Hives 12/04/2016 Medications levothyroxine (SYNTHROID) 137 MCG Tablet Take 75 mcg by mouth daily. 75Mcg Active metoprolol Succinate (TOPROL-XL) 25 MG TABLET SR 24 HR Take 25 mg by mouth daily. Active atorvastatin (LIPITOR) 40 MG Tablet Take 40 mg by mouth daily. Active lisinopril (PRINIVIL, ZESTRIL) 20 MG Tablet Take 20 mg by mouth daily. Active oxybutynin (DITROPAN-XL) 10 MG TABLET SR 24 HR Take 10 mg by mouth daily. Active aspirin 81 MG Chewable Tablet Take 81 mg by mouth daily. Active Multiple Vitamins-Minera ls (WOMENS DAILY FORMULA PO) Take by mouth. Activ e fish oil-omega-3 fatty acids 1000 MG Capsule Take 1,000 mg by mouth daily. Active gabapentin (NEURONTIN) 300 MG Capsule gabapentin 300 mg capsule TAKE 1 CAPSULE BY MOUTH AT BEDTIME FOR 3 DAYS THEN TAKE 1 CAP TWICE DAILY FOR 3 DAYS THEN 1 CAP THREE TIMES DAILY THEREAFTER 1 Active cyclobenzaprine (FLEXERIL) 10 MG Tablet Take 10 mg by mouth 3 times daily as needed. Active TRAMADOL HCL PO Take by mouth. Active Cholecalciferol (VITAMIN D3 PO) Take by mouth. Active Ascorbic Acid (VITAMIN C PO) Take by mouth. Active MULTIPLE VITAMIN PO Take by mouth. Acti ve omeprazole (PriLOSEC) 40 MG CAPSULE DELAYED RELEASE TAKE 1 CAPSULE BY MOUTH ONCE DAILY 30-60 MINUTES BEFORE LARGEST MEAL 90 Capsule 2 Active Active Problems No known active problems Immunizations Immunization Administration Dates Next Due Covid-19, Mrna, Lnp-s, Pf, 30 Mcg/0.3 Ml Dose (P fizer) 05/14/2020,04/23/2020 Influenza Vaccine 12/02/2015 Influenza Vaccine, Quadrivalent, PF 10/26/2017 Influenza, Recombinant, Quadrivalent,injectable, Pf 10/30/2019,10/23/2018 Influenza, Seasonal, Injectable, Undefined 11/24 Zoster Vaccine Recombinant 01/19/2018,11/05/2017 Family History Medical History Relation Name Comments Heart Disease Brother 1 Heart Disease Brother 2 Heart Disease Father Cancer Maternal Aunt 1 breast Cancer Maternal Aunt 2 ovarian Heart Disease Mother Cancer Other breast Cancer Sister lung,bone Heart Disease Sister Relation Name Status Comments Brother 1 Brother 2 Father Maternal Aunt 1 Maternal Aunt 2 Mother Other Sister Social History Tobacco Use Types Packs/Day Years Used Date Smoking Tobacco: Former Cigarettes 2 20 1 980 - 2000 Smokeless Tobacco: Never Tobacco Cessation:Counseling Given: No Alcohol Use Standard Drinks/Week Comments Yes 0 (1 standard drink = 0.6 oz pur e alcohol) rare Sexually Active Control Partners Comments Not Currently Comments No Sex and Gender Information Value Date Recorded Sex Assigned at Not on file Legal Sex Female 7:42 PM CDT Gender Identity Not on file Sexual Orientation Not on file 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 fi le Not on file Last Filed Vital Signs Vital Sign Reading Time Taken Comments Blood Pressure 138/82 07/23/2020 9:06 AM CDT Pulse 77 07/23/2020 9:06 AM CDT Temperature 36.7 C (98 F) 07/23/2020 9:06 AM CDT Respiratory Rate 18 07/23/2020 9:06 AM CDT Oxygen Saturation 100% 12/04/2016 1:24 PM CDT Inhaled Oxygen Concentration - - Weight 85.3 kg (188 lb) 07/23/2020 9:06 AM CDT Height 165.1 cm (5' 5) 07/23/2020 9:06 AM CDT Body Mass Index 31.28 07/23/2020 9:06 AM CDT Plan of Treatment Health Maintenance Due Date Last Done Comments Hepatitis C Virus (HCV) Screening 1955 TdaP Immunization 1956 Cologuard 2001 Immunochemical Fecal Occult Blood 2001 Pneumococcal Immunization (50+ years) (1 of 1 - PCV) 2006 Respiratory Syncytial Virus (RSV) Immunization (Adult) (1 - Risk 50-74 years 1-dose series) 2006 Influenza Immunization (#1) 10/23/202408/2019, 10/23/2018, 10/26/2017, Additional history exists SARS-COV-2 Immunization ( season) 2024 12/10/2020, 05/14/2020, 04/23/2020 Colonoscopy 08/21/2030 08/21/2020 Colorectal Cancer Screening 08/21/2030 Zoster Immunization Completed 01/19/2018, 8 Hepatitis B Immunization Aged Out No longer eligible based on patient's age to complete this topic Human Papillomavirus (HPV) Immunization (No Doses Required) Completed Meningococcal Immunization (ACWY) Aged Out No longer eligible based on patient's age to complete this topic Rotavirus Immunization Aged Out No lo nger eligible based on patient's age to complete this topic Procedures Procedure Name Priority Date/Time Associated Diagnosis Comments COLONOSCOPY Routine 08/21/2020 from Last 3 Months or Most Recently Relevant to Health Maintenance Results * COLONOSCOPY (08/21/2020) us Rodri Jimenez DO PROCEDURE/MINOR SURGICAL ORDERA BLES Final Result from Last 3 Months or Most Recently Relevant to Health Maintenance Insurance Care Teams Electrotype Molder Relationship Specialty Start Date End Date Edgar De Luna DO [address] [place] [address] PCP - General Internal Medicine 06/14/20
== END 2025-02-20 15:48 | disposition home or self-care (01) ==
LOC: ANHFOHIMG 15:48
PROVIDERS: PCP Nurse Practitioner Family; Visit Provider Nurse Practitioner Family
DX: Z12.31 Encounter for screening mammogram for malignant neoplasm of breast (principal)
CPT/HCPCS: 77063; 77067